=== PATIENT | female | born 1950 | race Caucasian/White ===

== ENCOUNTER 2019-04-24 23:08 | Emergency (ER) | payer OTHER ==
[~2019-04-24] VITALS: Ht 152.4 cm; Wt 72.6 kg
[2019-04-25 00:09] VITALS: BP 110/42
[2019-04-25] MEDS ORDERED: AMIODARONE HCL400 MG PO (20:02)
[2019-04-25] MEDS ORDERED: ELIQUIS2.5 MG PO (20:02)
[2019-04-25] MEDS ORDERED: ALBUTEROL2.5 MG/0.5 INH (20:02)
[2019-04-25] MEDS ORDERED: ASA81BEC PO (20:03)
[2019-04-25] MEDS ORDERED: PLAVIX 75 MG TA75 MG PO (20:03)
[2019-04-25] MEDS ORDERED: LIPITOR 20 MG T20 M1 PO (20:03)
[2019-04-25] MEDS ORDERED: LANTUS SUBQ (20:04)
[2019-04-25] MEDS ORDERED: HUMALOG100 UNIT/1 SUBQ (20:05)
[2019-04-25] MEDS ORDERED: PREVACID30 MG PO (20:05)
[2019-04-25] MEDS ORDERED: TOPROL XL25 MG PO (20:05)
[2019-04-25] MEDS ORDERED: MIDODRINE HCL 55 M1 PO (20:06)
[2019-04-25] MEDS ORDERED: DULERA 100 MCG/13 GM INH (20:07)
[2019-04-25] MEDS ORDERED: RENVELA0.8 GM PO (20:08)
[2019-04-25] MEDS ORDERED: SUPER THERAVIT1 EACH PO (20:08)
[2019-04-25] MEDS ORDERED: ROPINIROLE HCL2 M1 PO (20:08)
[2019-04-25] MEDS ORDERED: SPIRIVA18 MCG INH (20:09)
== END 2019-04-25 00:09 | disposition home or self-care (01) ==
LOC: ER 23:08
DX: L97.811 Non-pressure chronic ulcer of other part of right lower leg limited to breakdown of skin (principal); G62.9 Polyneuropathy, unspecified; I10 Essential (primary) hypertension; I25.10 Atherosclerotic heart disease of native coronary artery without angina pectoris; Z87.891 Personal history of nicotine dependence; Z89.511 Acquired absence of right leg below knee; Z79.4 Long term (current) use of insulin; Z90.49 Acquired absence of other specified parts of digestive tract; Z91.040 Latex allergy status

== ENCOUNTER 2019-04-25 13:57 | Inpatient (IN) | payer OTHER ==
[~2019-04-25] VITALS: Ht 152.4 cm; Wt 66.7 kg
[2019-04-25 14:04] VITALS: BP 147/43
[2019-04-25 14:48] LABS: BE(vivo) 0.5 mmol/L (-2 to +3); HCO3 26.9 mmol/L (22.0-26.0); PCO2 VENOUS 52.6 mmHg (41.0-51.0)
[2019-04-25 14:56] LABS: ABSOLUTE NEUTROPHILS 5.6 thou/uL (1.4-8.2); BASOPHILS 0.6 % (0.0-2.0); EOSINOPHILS 3.8 % (0.0-3.0); HEMATOCRIT 26.9 % (37.0-47.0); HEMOGLOBIN 8.4 gm/dL (12.0-15.0); LYMPHOCYTES 5.4 % (24.0-44.0); MCH 29.6 pg (26.0-34.0); MCHC 31.3 g/dL (28.0-37.0); MCV 94.4 fL (80.0-100.0); PLATELET COUNT 193 thou/uL (150-400); POLYS 82.2 % (36.0-66.0); RBC 2.85 mil/uL (4.20-5.00); RDW 18.8 % (10.5-14.5); WBC 6.8 thou/uL (4.0-11.0)
[2019-04-25 15:05] LABS: CALCIUM 8.5 mg/dL (8.5-10.1); CREATININE 4.1 mg/dL (0.6-1.0); POTASSIUM 4.7 mmol/L (3.5-5.1)
[2019-04-25 15:16] LABS: ALBUMIN 2.8 g/dL (3.4-5.0); TOTAL BILIRUBIN 0.5 mg/dL (<0.1-1.0); TOTAL PROTEIN 5.9 g/dL (6.4-8.2); TROPONIN-I 0.42 ng/mL (<0.06)
[2019-04-25 15:22] LABS: ANISOCYTOSIS 1+
[2019-04-25 19:08] VITALS: BP 101/33
[2019-04-25 19:30] VITALS: BP 121/50
[2019-04-25 20:01] VITALS: BP 123/30
[2019-04-25] MEDS ORDERED: AMIODARONE HCL400 MG PO (20:02)
[2019-04-25] MEDS ORDERED: ALBUTEROL2.5 MG/0.5 INH (20:02)
[2019-04-25] MEDS ORDERED: ELIQUIS2.5 MG PO (20:02)
[2019-04-25] MEDS ORDERED: ASA81BEC PO (20:03)
[2019-04-25] MEDS ORDERED: PLAVIX 75 MG TA75 MG PO (20:03)
[2019-04-25] MEDS ORDERED: LIPITOR 20 MG T20 M1 PO (20:03)
[2019-04-25] MEDS ORDERED: LANTUS SUBQ (20:04)
[2019-04-25] MEDS ORDERED: PREVACID30 MG PO (20:05)
[2019-04-25] MEDS ORDERED: HUMALOG100 UNIT/1 SUBQ (20:05)
[2019-04-25] MEDS ORDERED: TOPROL XL25 MG PO (20:05)
[2019-04-25] MEDS ORDERED: MIDODRINE HCL 55 M1 PO (20:06)
[2019-04-25] MEDS ORDERED: DULERA 100 MCG/13 GM INH (20:07)
[2019-04-25] MEDS ORDERED: ROPINIROLE HCL2 M1 PO (20:08)
[2019-04-25] MEDS ORDERED: SUPER THERAVIT1 EACH PO (20:08)
[2019-04-25] MEDS ORDERED: RENVELA0.8 GM PO (20:08)
[2019-04-25] MEDS ORDERED: SPIRIVA18 MCG INH (20:09)
[2019-04-26 00:09] VITALS: BP 117/81
[2019-04-26 03:23] VITALS: BP 140/30
--- NOTE | 2019-04-26 04:34 | NUR ---
ASSUMED CARE OF PATIENT FROM ER. ADMISSION COMPLETE. PICTURES OF WOUNDS IN CHART, CONSULTS CALLED. VERY ANXIOUS AT TIMES, STATES SHE IS SOA. PLACED ON CONTINUOUS PULSE OX TO MONITOR. REMAINS ABOVE 92% ON 2L. RESTING AT THIS TIME. POC GOALS ESTABLISHED. WILL CONTINUE TO MONITOR.
--- NOTE | 2019-04-26 08:56 | EKG ---
[address] [place] [address] ELECTROCARDIOGRAM REPORT Name: BARRY GRANADOS IDALMIS Room #: 362-P ADM IN M.R.#: [id number] Admission: 04/25/19 Attend Phys: Reggie Mendoza Discharge: Date of : 46 Report #: [id number] THIS REPORT FOR: //name// [facility] ED Test Date: 2019-04-25 Test Time: 14:21:37 Pat Name: BARRY AUGUSTBINH Department: Room: 362 Gender: F Commercial Sales Manager: UNIQUE : 1950 Requested By: Jasper Mcfarlane Order Number: [id number] MD: Arben Velasco Measurements Intervals [place] Rate: 69 P: MS: QRS: 163 QRSD: 132 T: -24 QT: 434 QTc: 465 Interpretive Statements Probable limb lead reversal Sinus rhythm Nonspecific intraventricular conduction delay Poor R wave progression Nonspecific ST and T wave abnormality Compared to ECG 09/15/2008 09:43:38 Intraventricular conduction delay now present nonspecific ST and T wave abnormality is present Electronically Signed On 04-26-2019 8:55:55 ACTING PROFESSOR by Arben Velasco [email or web address] <ELECTRONICALLY SIGNED> By: Arben Velasco MD, [facility] 04/26/19 0855 1421 1421 Arben Velasco MD, [facility] /EPI
[2019-04-26 09:11] VITALS: BP 118/57
--- NOTE | 2019-04-26 09:59 | NUR ---
Nutrition: pt admitted with SOA and seen due to consult stating "diet". Pt with hx of ESRD on hemodialysis x several years per pt. Also noted non pressure related ulcer to RLE at BKA site. Right BKA done 2-3 years ago due to infection. Very good appetite is reported and stable weights around 160#. Noted pt did not eat much breakfast, states she didn't like it. RD obtained food prefs and assisted with meal order today. Did ask for many foods not allowed on renal diet. When explained she states she knows. Offered education & handout for review but pt refused and states she doesn't need that. Understands protein needs/sources for wound healing, adamantly refusing all supplements. States will eat 100% protein foods first on trays. Low risk.
--- NOTE | 2019-04-26 14:02 | NUR ---
DISCHARGE ANTICIPTED FOR TOMORROW. PATIENT CLINICALS FAXED TO [facility]. CALL PLACED TO CLINIC. SPOKE WITH ZACK TO NOTIFY OF CLINCALS FAXED AND ANTICIPATED DISCHARGE FOR TOMORROW.
--- NOTE | 2019-04-26 14:49 | NUR ---
INITIAL ASSESSMENT: Received consult. Pt was admitted from home due to pulmonary edema. Pt with hx of ESRD and goes to outpatient dialysis. Pt with hx of right BKA. Pt currently off the unit having dialysis. SW placed call to pt's dtr, Van and son, Esteban. Messages left for both of them. Per chart, pt lives at home with her dtr. Pt goes to dialysis at [facility]. Possible weekend discharge. inventory control planner faxed clinical info to the [facility] for review and notified of possible weekend discharge. Plan is for pt to discharge home when medically stable. VALERIANO is following to assist as needed with discharge planning.
[2019-04-26 15:01] VITALS: BP 99/36
--- NOTE | 2019-04-26 16:40 | NUR ---
Assumed care approx. 0700 this AM. Pt taken to dialysis approx. 1000 and arrived back to room around 1500. Pt stated she tolerated dialysis well. Pt hypotensive upon arrival back with BP in the 90's/30's. BID metoprolol held as well as amio. All other daily meds administered upon arrival back to unit. Pt assessment completed upon arrival aman (see charted assessment); no changes noted. Pt remains to have a clean mepilex on right stump wound. Stump is elevated on pillow. Pt on 2LNC and tolerating well with O2 sat noted to be 100%. Family at bedside to visit this afternoon. Will continue to monitor. Pt slightly progressing toward plan of care goals.
[2019-04-26 19:45] VITALS: BP 117/54
[2019-04-26 23:54] VITALS: BP 109/46
[2019-04-27 03:14] VITALS: BP 107/48
--- NOTE | 2019-04-27 06:29 | NUR ---
ASSUMED CARE AT 1900. PT SOB AND VERY ANXIOUS OVERNIGHT; SOB WORSE WHEN TRYING TO LAY PT BACK AND REPOSITION. OBTAINED ORDERS FOR RT TREATMENTS, PRN XANAX, AND CXR THIS AM. LUNGS ARE WHEEZY WITH FINE CRACKLES IN THE BASES; SATS ARE UPPER 90'S TO 100% BUT BECOMES TACHYPNIC/ANXIOUS EASILY. PT ASKS FOR SNACKS AND DRINKS FREQUENTLY OVERNIGHT; HS BLOOD SUGAR 218, GAVE 10 UNITS OF LANTUS. PLAN FOR DIALYSIS TODAY. LEFT ARM CONTINUES TO BE VERY WEEPY OVERNIGHT, SEROSANGINOUS DRAINAGE ON CHUX. HAD A MEDIUM SOFT/FORMED, DARK BROWN STOOL. NO OTHER CONCERNS, WILL CONTINUE TO MONITOR.
[2019-04-27 07:31] VITALS: BP 105/49
[2019-04-27 11:32] VITALS: BP 104/49
[2019-04-27 15:13] VITALS: BP 100/53
--- NOTE | 2019-04-27 16:56 | NUR ---
Assumed care approx. 0700 this AM. Pt alert and oriented, very anxious. Pt on 2LNC and tolerating well. Dialysis today- 4 Liters off per information technology analyst report. Pt tolerated well. Right stump dressed with mepilex, kerlix, and a bandage to hold in place by physician this morning. No acute changes this shift. Will continue to monitor. Pt slightly progressing toward plan of care goals.
[2019-04-27 19:55] VITALS: BP 101/53
--- NOTE | 2019-04-28 02:33 | NUR ---
ASSESSMENT: PT REMAIN ALERT AND ORIENT TIMES THREE. PT DID NOT YELL OUT DURING THE NIGHT BUT USED CALL LIGHT INSTEAD TO VOICE HER NEEDS. SLEPT MOST OF THE NIGHT. REPLACED LUIS WRAP AROUND STUMP ON RIGHT AKA. LEFT ARM WEEPY. VSS, AFEBRILE. SR PER MONITOR. SLOW PROGRESS, WILL CONTINUE TO MONITOR.
[2019-04-28 04:30] VITALS: BP 100/56
[2019-04-28 07:32] VITALS: BP 92/47
[2019-04-28] MEDS ORDERED: AUGMENTIN 875-1 EACH PO (09:29)
[2019-04-28 11:24] VITALS: BP 101/41
[2019-04-28 15:27] VITALS: BP 105/54
--- NOTE | 2019-04-28 19:16 | NUR ---
ASSUMED PATIENT CARE AT 0700. A/O X4. ANXIOUS SOME TIMES. SOB WITH EXERTION. ASSISTED TURN. SLOWLY TOWARDS POC GOALS.
[2019-04-28 19:24] VITALS: BP 103/47
--- NOTE | 2019-04-29 02:05 | NUR ---
ASSUMED CARE OF PT AT 1900HRS. PT IS AOX4 WITH SOME CONFUSION AT TIMES. PT LETS NEEDS BE KNOWN. FALL PRECAUTION IN PLACE. PT COMPLAINED OF SOA WITHOUT RELIEF FROM BREATHING TREATMENTS. ANGY MELENDEZ NOTIFIED. ABG WAS ORDERD BUT BLOOD DRAW WAS UNSUCCESSFUL AFTER 4 ATTEMPTS. PT REFUSED FURTHER ATTEMPTS FOR ABG. PT IS PLACED ON BIPAP FOR THE REMAINDER OF THE SHIFT. PT IS TO HAVE DIALYSIS IN THE AM. WILL CONTINUE TO MONITOR.
[2019-04-29 04:00] VITALS: BP 124/53
[2019-04-29 07:20] VITALS: BP 117/42
[2019-04-29 09:02] LABS: ALBUMIN 2.3 g/dL (3.4-5.0); CALCIUM 7.7 mg/dL (8.5-10.1); CREATININE 4.2 mg/dL (0.6-1.0); PHOSPHORUS 4.8 mg/dL (2.5-4.9)
[2019-04-29 13:30] VITALS: BP 97/46
--- NOTE | 2019-04-29 14:40 | NUR ---
0715 pt off the floor for dialysis.
--- NOTE | 2019-04-29 14:41 | NUR ---
1300 pt back from dialysis, assessment and vital signs completed. pt eating lunch and visiting with family. Call light in reach and bed alarm on. denies any needs.
--- NOTE | 2019-04-29 15:25 | NUR ---
SW reviewed chart and spoke with nursing and attending physician. Pt is progressing towards goals for discharge. Recommendation made for post-acute placement. VALERIANO met with pt, dtr and son at bedside. Introduced role of SW. Pt is alert/orientated. Pt lives at home with her family. Pt with hx of right BKA. Pt has w/c, BSC, knee scooter, and walker at home. Pt has prosthesis, but has not been able to use it for ambulation. Pt was recently at [facility] and was discharged home on 04/24. Per pt's family, HH was arranged but had not started when pt was admitted. Pt with ESRD, and is set up with [facility] on T-R-S at 1000. Pt's family provides transportation, but state that they are unable to manage pt's care needs at home any longer. Pt used to go to the [facility] at [place]. Pt's PCP is Dr. Denys Duron. Pt and family are agreeable with post-acute placement. SW provided list of in-network facilities for review. Pt and family request referral to [facility] due to onsite dialysis unit. VALERIANO explained that pt would have to change diaysis groups from [facility] to [facility]. All in agreement with plan. Lengthy discussion with pt's family about possible Medicaid application and pt's current insurance. SW encouraged pt/family to contact insurance to see if they are able to change insurance before the open enrollment period. Pt's family state that they cannot bring pt home and she will need termite helper care placement. VALERIANO contacted [facility] to request them to speak with pt's family. Face sheet faxed to [facility]. party planner to fax referral to [facility]. VALERIANO is following to assist as needed with discharge planning.
--- NOTE | 2019-04-29 15:37 | NUR ---
DISCHARGE PLANNING. ANTICIPATED DISCHARGE TOMORROW. PATIENT REFERR[facility]. CALL PLACED TO TERESA TO NOTIFY. TERESA TO REVIEW AND CONTACT CM. PATIENT WILL NEED DIALYSIS TRANSFERRED TO [facility] UPON ACCEPTANCE TO [facility]. TER[facility] AWARE. AWAITING RESPONSE.
[2019-04-29 16:25] VITALS: BP 97/46
[2019-04-29 16:28] VITALS: BP 97/39
--- NOTE | 2019-04-29 18:35 | NUR ---
PT PULLED OUT IV, SITE BLEEDING, PRESSURE APPLIED. SITE NO LONGER BLEEDING DRESSING APPLIED. IV TEAM PAGED FOR A NEW IV. wILL CPONTINUE TO MONITOR.
[2019-04-29 19:45] VITALS: BP 103/51
--- NOTE | 2019-04-30 05:22 | NUR ---
Pt. very anxious and hollers when awake. Disoriented at times and forgetful. Pt. given a lot of reassurances and reorientation. She frequently ask for snacks. Repositioned prn for comfort. O2 at 2L/NC and she goes get short of breath with exertion and gets tachypneic when anxious. Anxiety med given with good relief. She slept fair after 0100. Oliguric , used bedpan to have a bm. Bed alarm on for safety. Will continue to monitor.
[2019-04-30 06:00] VITALS: BP 99/52
[2019-04-30 08:11] VITALS: BP 120/55
--- NOTE | 2019-04-30 08:19 | HC ---
[facility] [place] [address] CONSULTATION Name: Room #: 362-P ADM IN M.R.#: [id number] Admission: 04/25/19 Attend Phys: Reggie Mendoza Discharge: Date of : 46 Report #: [id number] THIS REPORT FOR: //name// CC: Denys Mendoza DATE OF SERVICE: 04/26/2019 REASON FOR THE CONSULTATION: End-stage renal disease. REASON FOR THE PRESENTATION: Weakness and shortness of breath. HISTORY OF PRESENT ILLNESS: This is a 68-year-old who has been maintained on hemodialysis for some years. This had started in [place]. She dialyzes every Monday, Monday and Monday. She has a longstanding history of diabetes mellitus and hypertension. She is status post right AKA. She dialyzes with [facility]. The patient was recently admitted to [facility]. She was at that facility recently for what seems to be pressure ulcers. She was discharged from [facility] to her home. It looks like that she had major issues with her fluid while at [facility] and was dialyzed every Monday, and Monday. The daughter was concerned about an ulcer that started to appear in the last 36 hours as per the medical records. Because of this ulcer, the patient's daughter brought the patient to the hospital for further evaluation. There seems to be social issues with the patient's care. The patient is supposed to be dialyzing today. From the renal perspective, she was started on hemodialysis in [place]. She recently moved to [place] to live with her daughter. Her end-stage renal disease was attributed to diabetes mellitus. PAST MEDICAL HISTORY: 1. End-stage renal disease, maintained on hemodialysis. 2. Hypertension. 3. Post right AKA. 4. Diabetes mellitus with all of its complications. 5. Egan's esophagus. 6. Tonsillectomy. 7. Coronary artery disease, post CABG ALLERGIES: LATEX. SOCIAL HISTORY: She lives with her daughter. Denies drug or alcohol abuse. FAMILY HISTORY: Significant for diabetes mellitus. REVIEW OF SYSTEMS: GENERAL: Significant for weakness and limited mobility. [facility] [address] [place] [address] CONSULTATION Name: AUGUSTBINHSeptember Room #: 362-P [facility] IN M.R.#: [id number] Admission: 04/25/19 Attend Phys: Reggie Mendoza Discharge: Date of : 46 Report #: [id number] CARDIOVASCULAR: Significant for shortness of breath. PULMONARY: Significant for shortness of breath, but no cough or hemoptysis. GASTROINTESTINAL: No nausea or vomiting. GENITOURINARY: Minimal urine output. No frequency, no urgency. MUSCULOSKELETAL: As per the history of present illness. SKIN: As per the history of present illness. MEDICATIONS: 1. Midodrine. 2. Eliquis. 3. Plavix. 4. Metoprolol. 5. Insulin. PHYSICAL EXAMINATION: GENERAL: She is alert, oriented. VITAL SIGNS: Blood pressure is 118/57. She is maintained on by nasal cannula oxygen. Temperature is 36.8, pulse rate is 69. HEAD AND NECK: Left IJ tunneled catheter. CHEST: Bilateral crackles. CARDIOVASCULAR: Systolic murmur present. ABDOMEN: Soft with abdominal wall edema. LOWER EXTREMITIES: Right AKA with extensive left lower extremity edema and venous stasis changes. UPPER EXTREMITIES: Clotted right-sided AV graft. LABORATORY DATA: White blood cell count 6.8, hemoglobin 8.4, platelet 193. Sodium 133, BUN is 44, creatinine is 4.1. Chest x-ray is consistent with pulmonary edema. IMPRESSION AND PLAN: 1. End-stage renal disease. 2. Acute pulmonary edema. 3. Diabetes mellitus with all of its complications. 4. Anemia. 5. The patient is definitely under dialyzed and will need aggressive dialysis regimen to better control her volume given her pulmonary edema and significant peripheral edema. Dialysis will be arranged for the patient today. 6. Extra ultrafiltration tomorrow. 7. Wound care. 8. Resume her outpatient home medications. <ELECTRONICALLY SIGNED> By: Sophia Rock MD 04/30/19 0819 0918 1202 Sophia Rock MD /nt
--- NOTE | 2019-04-30 08:34 | HC ---
[facility] [place] [address] CONSULTATION Name: AUGUSTBINHBARRY IDALMIS Room #: 362-P ADM IN M.R.#: [id number] Admission: 04/25/19 Attend Phys: Reggie Mendoza Discharge: Date of : 46 Report #: [id number] THIS REPORT FOR: //name// CC: Denys Mendoza DATE OF SERVICE: 04/27/2019 WOUND CARE CONSULTATION NOTE REASON FOR CONSULTATION: Abrasion and pressure ulcer of right leg, below-knee amputation stump in the setting of recent myocardial infarction, renal failure with dialysis and respiratory insufficiency with hospital-acquired pneumonia. HISTORY OF PRESENT ILLNESS: The patient is a 68-year-old woman who is status post right below-knee amputation 2-3 years ago for diabetic complications of diabetes mellitus type 2 and diabetic neuropathy. The patient had been discharged from [facility] after a 4-day admission for myocardial infarction. The patient developed respiratory insufficiency and is admitted for possible hospital-acquired pneumonia with diffuse lower lobe predominant interstitial opacities, rule out pneumonia. Wound care was asked to see her since it was noted that she has a wound of her right amputation stump. PAST MEDICAL HISTORY: 1. Status post recent myocardial infarction. 2. Currently being treated for possible hospital-acquired pneumonia. 3. End-stage renal disease with hemodialysis. 4. Diabetes mellitus type 2. 5. Diabetic peripheral neuropathy. 6. Asthma. 7. Hypertension. 8. Coronary artery disease. PAST SURGICAL HISTORY: Tubal ligation, coronary artery bypass grafting and stenting, tonsillectomy, exploratory laparotomy, cataract surgery, cholecystectomy, right below-knee amputation 3 years ago. SOCIAL HISTORY: Former smoker. ALLERGIES: LATEX, IVP DYE. PHYSICAL EXAMINATION: GENERAL: Shows a chronically ill-appearing elderly woman who is responsive. She has some coarse breath sounds and cough. HEENT: Mucous membranes are moist. NECK: Supple. [facility] [address] [place] [address] CONSULTATION Name: AUGUSTBINHBARRY IDALMIS Room #: 362-P ADM IN M.R.#: [id number] Admission: 04/25/19 Attend Phys: Reggie Mendoza Discharge: Date of : 46 Report #: [id number] ABDOMEN: Soft. EXTREMITIES: Focused extremity exam shows right below-knee amputation. On the distal dorsal aspect of the right knee amputation stump, there is present an oval 2.5 x 2 cm wound, which appears to be either an abrasion with a skin tear or stage 2 pressure ulcer. This appears superficial. There is a thin layer of epithelium, which was disrupted with underlying slight discoloration. We will dress this wound with a Mepilex foam border, Kerlix and an Sean for protection, this appears noninfected. IMPRESSION: Abrasion or skin tear versus pressure ulcer of right below-knee amputation stump. This appears limited to the superficial skin layer. PLAN: We advised Mepilex foam border protection to be changed daily, covered with a Kerlix, Sean wrap. Wound care team will follow. <ELECTRONICALLY SIGNED> By: Alexey Edwards MD 04/30/19 0834 [id number] 0836 Alexey Edwards MD /nt
--- NOTE | 2019-04-30 08:48 | NUR ---
pt awake, alert and oriented X3. PT SATING GOOD ON 2L OF OXYGEN. ATE MOST OF HER BREAKFAST. AM MEDS ADMINSTERED. Call LIGHT AND TABLE WITH REACH IN REACH. BED ALARM ON. DENIES ANY OTHER NEEDS. wILL CONTINUE TO MONITOR
--- NOTE | 2019-04-30 12:00 | NUR ---
VALERIANO reviewed chart and spoke with nursing and attending physician. Pt is progressing towards goals for discharge. VALERIANO notified that [facility] is able to accept pt from a clinical standpoint. [facility] to submit for insurance authorization for skilled placement. VALERIANO spoke with [email or web address] about meeting with pt/family for possible Medicaid jesus as secondary insurance. planner internship faxed updates to [facility] and also faxed info to [facility] intake for review. Pt and family are in agreement with plan for pt change to [facility] clinic while at [facility]. [id number] form completed and faxed to [facility]. Placed on pt's chart. VALERIANO left voice message for pt's dtr, Van, to provide update. Awaiting input from [facility] intake at this time. VAELRIANO is following to assist as needed with discharge planning.
[2019-04-30 12:14] VITALS: BP 109/45
--- NOTE | 2019-04-30 15:20 | NUR ---
WOUND CONSULT; ROUNDING WITH [employer]. THE RIGHT BKA AREA HAS AN OLD HEMATOMA THAT IS RESOLVED. NO DRAINAGE OR ODOR. RECOMMENDATIONS; SKIN PREP, COVER WITH BORDER FOAM, CHANGE M/W/F PRN DISCUSSED WITH STAFF
[2019-04-30 15:54] VITALS: BP 119/49
[2019-04-30 20:20] VITALS: BP 105/39
--- NOTE | 2019-05-01 02:30 | NUR ---
ASSUMED CARE FROM DAY SHIFT PT C/O BACK PAIN TYLENOL PO GIVEN AND PT REPOSITION FOR COMFORT, PT AWAKE YELLING OUT , XANAX GIVEN WITH BOX LUNCH.PT REFUSE TO USE CALL LIGHT WHEN NEEDING HELP. GAS LEAK INSPECTOR HELPER SHOWS NSR.BED ALRM ON FOR SAFETY, WILL CONITIUE WOITH CURRENT PLAN OF CARE.
[2019-05-01 03:56] VITALS: BP 121/54
[2019-05-01 08:01] VITALS: BP 94/44
[2019-05-01 11:26] VITALS: BP 109/44
--- NOTE | 2019-05-01 12:07 | NUR ---
WOUND CONSULT; ROUNDING WITH DR WASSERMAN. THE BKA AREA IS AN OLD HEMATOMA AND IT IS NOT OPEN. NO CHANGES SINCE YESTERDAY. CONTINUE CURRENT TREATMENT
--- NOTE | 2019-05-01 16:44 | NUR ---
VALERIANO reviewed chart and spoke with nursing and attending physician. VALERIANO received call from Dusty Feliciano at [facility], who states that the physician has declined acceptance to the [facility], as pt is already established with [facility]. VALERIANO spoke with spiral winding machine helper. SW spoke with pt's dtr, via phone to update. Pt's dtr states that she is wanting to transfer pt's care to [facility] clinic. Pt's dtr states that she will work on getting in touch with pt's [facility] clinic. Pt's family would like to move to . [facility] for SNF/LTC. SW is following to assist as needed with discharge planning.
--- NOTE | 2019-05-01 18:28 | NUR ---
PATIENT IS IN DIALYSIS AT THIS TIME. SHE WAS NOTED TO BE ANXIOUS AND PRN XANAX ADMINISTERED. IT WAS EFFECTIVE. SHE WAS NOTED TO HAVE LOW BP IN DIALYSIS AND ALBUMIN WAS INFUSED. WILL CONT TO MONITOR AND ASSIST NEEDED.
[2019-05-01 19:37] VITALS: BP 112/48
--- NOTE | 2019-05-01 23:07 | NUR ---
PT VERY AGITATED YELLING AND SCREAMING CONFUSED TO SURROUNDING, ATTEMPTED TO GIVEN HALDOL IV. IV SITE CLOTTED AND NOT ABLE TO GIVEN. ATTEMPTED TO REPLACE IV BUT WAS UNSUCESSFUL. CALLED AND GOT ORDER FOR IM HALDOL.XANAX GIVEN PT THREW PILL ACROSS THE ROOM. AFTER 30 MINS PT CALM AND COOPERATIVE , PT THEN TOOK XANAX AND ASK FOR BOX LUNCH.
--- NOTE | 2019-05-02 03:42 | NUR ---
PT AGREED TO HAVE RESP THERAPY PLACE BIPAP ON, PT CONINTUE TO WANT OT TAKE OF MASK BUT IS TOLD TO KEEP ON SAT 98 % NAD LUNG SOUNDS IMPROVING AT THIS TIME.
[2019-05-02 03:57] VITALS: BP 116/45
[2019-05-02 07:47] VITALS: BP 118/57
[2019-05-02 09:12] LABS: HEP B SURFACE Ab(ANTI-HBS Non Reactive (()); HEPATITIS B SURFACE AG Negative (Negative)
[2019-05-02 10:53] LABS: HEMATOCRIT 26.1 % (37.0-47.0)
[2019-05-02 11:12] VITALS: BP 155/89
[2019-05-02 11:23] VITALS: BP 109/42
--- NOTE | 2019-05-02 15:34 | NUR ---
VALERIANO reviewed chart and spoke with nursing and attending physician. Pt not stable for discharge today, as pt has GI bleed. GI consulted. VALERIANO spoke with Denia in admissions at [facility] to provide update. Denia to speak with Hospital Security Officer to determine if they can accept pt, and then pt can continue to use her [facility] clinic. Sue met with pt and completed a Medicaid application. VALERIANO updated Denia at [facility] regarding Medicaid application. Sue to send VALERIANO MEdicaid application when processed. VALERIANO is following to assist as needed with discharge planning.
--- NOTE | 2019-05-02 15:47 | NUR ---
ASSUMED CARE AT SHIFT CHANGE, ASSESSMENT DOCUMENTED AND VSS. PATIENT HAD BLOODY BM, AND DR PASCUAL NOTIFIED. S/B GI AND ORDERED TO KEEP PATIENT NPO. AND WILL CONTINUE WITH POC.
[2019-05-02 15:48] VITALS: BP 109/37
[2019-05-02 19:15] VITALS: BP 129/57
[2019-05-03 04:20] VITALS: BP 118/38
--- NOTE | 2019-05-03 04:41 | NUR ---
ASSUMED CARE AT 1900. PT FREQ ANXIOUS AND REQUIRES REDIRECTION; SOB INCREASES WITH HER ANXIETY, GAVE XANAX AT HS. WORE BIPAP FOR LESS THAN AN HOUR, DIDN'T TOLERATE MASK, AND PT WAS DESATTING WITH MASK ON IT SEEMED TO BE PULLING HER FACE FORWARD AND REDUCING O2 FLOW. SATS IMPROVED WITH JUST THE NC. HAS A LOOSE, WEAK COUGH. NO BLOODY STOOLS OVERNIGHT. PLAN FOR DIALYSIS TODAY. NO OTHER CONCERNS, WILL CONTINUE TO MONITOR.
--- NOTE | 2019-05-03 10:18 | NUR ---
SW reviewed chart and spoke with nursing and attending physician. Pt with new GI bleed. VALERIANO received pt's Medicaid jesus from [employer]. Form printed and faxed to [facility] for review. VALERIANO is follow to assist as needed with discharge planning.
[2019-05-03 11:43] LABS: HEMATOCRIT 25.5 % (37.0-47.0)
[2019-05-03 13:45] VITALS: BP 104/36
--- NOTE | 2019-05-03 14:04 | NUR ---
Nutrition: Pt seen per follow up. Ordered for dialysis today. No recent K+ or Phos labs to review. Continues on a renal diet and eating extremely well. Is averaging 86% of meals per the last 10 recorded meals, often eating 80-100% of recent meals. Woke pt from afternoon nap. She voices no new nutrition concerns or appetite issues. Denies any further nutrition needs. Fell back asleep mid-conversation. EMR notes GI bleed yesterday, with bloody stool. Weights very stable, within 1# this week (162.5# on 04/28, 163.4# on 05/02). Keep as low nutrition risk given consistently strong po intake levels.
[2019-05-03 14:10] VITALS: BP 121/43
[2019-05-03 15:29] VITALS: BP 111/34
--- NOTE | 2019-05-03 19:30 | NUR ---
HAD DIALYSIS TODAY AND 3.1L WAS OBTAIN. SHE APPEARS TIRED AND HAS SLEPT MOST OF THE EVENING. WILL CONT WITH PLAN OF CARE.
[2019-05-03 19:55] VITALS: BP 106/46
[2019-05-04 05:00] VITALS: BP 97/49
[2019-05-04 05:34] LABS: HEMATOCRIT 24.5 % (37.0-47.0); HEMOGLOBIN 7.6 gm/dL (12.0-15.0); MCH 30.2 pg (26.0-34.0); MCHC 30.9 g/dL (28.0-37.0); MCV 97.7 fL (80.0-100.0); RBC 2.51 mil/uL (4.20-5.00); RDW 18.7 % (10.5-14.5); WBC 4.6 thou/uL (4.0-11.0)
[2019-05-04 07:47] VITALS: BP 134/56
--- NOTE | 2019-05-04 08:12 | NUR ---
ASSUMED CARE AT 1900. PT CALLS OUT FREQ RATHER THAN USING HER CALL LIGHT. ASKS FOR MULTIPLE SNACKS ALL NIGHT. HS BLOOD SUGAR 212, GAVE THE ORDERED 10 UNITS OF LANTUS. PT ASKED TO BE TURNED SEVERAL TIMES THROUGHOUT THE NIGHT. GAVE TYLENOL ONCE FOR BUTTOCK PAIN, WITH GOOD RELIEF. GAVE XANAX ONCE FOR ANXIETY. 2L NC, EDUCATED TO DEEP BREATH AND GIVE A STRONG COUGH TO CLEAR SECRETIONS. NO OTHER CONCERNS, SHIFT REPORT GIVEN AT 0700.
[2019-05-04 11:27] VITALS: BP 116/51
[2019-05-04 15:39] VITALS: BP 92/34
--- NOTE | 2019-05-04 19:49 | NUR ---
Assumed pt care this am, pt would have moments when she would cry and state she wants to go home. Pt is easily redirected, and slept in the afternoom. No signs of bleeding hav been noted, diet is well tolerated. No signs or verbalizations of distress for this shift. Q2 turns done, bed bath done and whole body moisturized and this relieved the itching. POC followed, endorded to the night nurse.
[2019-05-04 20:03] VITALS: BP 112/44
[2019-05-05 03:03] VITALS: BP 101/41
--- NOTE | 2019-05-05 05:24 | NUR ---
ASSUMED CARE AT 1900. PT CONTINUES TO ASK FOR FREQ SNACKS. DENIES NAUSEA. REPORTS INTERMITTENT GENERALIZED AND BUTTOCK PAIN. GAVE TYLENOL ONCE, REPOSITIONING SIDE TO SIDE OVERNIGHT. RT HAS TITRATED PT'S O2 DOWN, THIS AM SHE IS ON 1L WITH SATS AROUND 92%. NO OTHER CONCERNS, WILL CONTINUE TO MONITOR.
[2019-05-05 05:33] LABS: HEMATOCRIT 26.2 % (37.0-47.0); HEMOGLOBIN 7.9 gm/dL (12.0-15.0); MCH 29.5 pg (26.0-34.0); MCHC 30.2 g/dL (28.0-37.0); MCV 97.5 fL (80.0-100.0); RBC 2.68 mil/uL (4.20-5.00); RDW 18.8 % (10.5-14.5); WBC 5.1 thou/uL (4.0-11.0)
[2019-05-05 06:00] LABS: % SATURATION 22 % (20-39); IRON 42 ug/dL (50-170); TIBC 192 ug/dL (250-450)
[2019-05-05 07:07] VITALS: BP 113/52
[2019-05-05 11:20] VITALS: BP 122/52
[2019-05-05 15:43] VITALS: BP 115/35
--- NOTE | 2019-05-05 18:21 | NUR ---
Assumed pt care this am, VS stable no nausea or vomiting has been noted. Q2 turns done through out the shift. No verbalizations of pain. Stayed om her recliner for the afternoon. POC followed, no signs or vrbalizations of distress have been noted.
[2019-05-05 18:59] VITALS: BP 138/50
--- NOTE | 2019-05-06 02:03 | NUR ---
ASSUMED CARE OF PT AT 1900HRS. PT IS AOX3-4 WITH SOME CONFUSION AND FORGETFULNESS. FALL PRECAUTION IN PLACE. BT CONTINUED. O2 VIA NC AT 1L CONTINUED. PT COMPLAINED OF PAIN AND SOA. PT FELT MORE COMFORTABLE AFTER REPOSITIONING AND BREATHING TREATMENT. PT WAS ABLE TO GET COMFORTABLE AND SLEEP PART OF THE SHIFT. DIALYSIS TO BE DONE IN THE AM. VSS AMD NO S/S/ OF ACUTE DISTRESS. WILL CONTINUE TO MONITOR.
[2019-05-06 04:13] VITALS: BP 105/37
[2019-05-06 05:30] LABS: HEMATOCRIT 25.6 % (37.0-47.0); MCH 30.3 pg (26.0-34.0); MCHC 31.2 g/dL (28.0-37.0); MCV 97.1 fL (80.0-100.0); RBC 2.63 mil/uL (4.20-5.00); RDW 18.4 % (10.5-14.5); WBC 5.3 thou/uL (4.0-11.0)
[2019-05-06 07:19] VITALS: BP 128/51
[2019-05-06 11:09] VITALS: BP 126/52
--- NOTE | 2019-05-06 15:29 | NUR ---
SW reviewed chart and spoke with nursing and attending physician. Pt is currently off the unit having dialysis. Pt's hemoglobin dropped. Awaiting input from GI regarding possible procedures. production planner updated admissions at [facility]. SW is following to assist as needed with discharge planning.
[2019-05-06 16:05] VITALS: BP 107/40
--- NOTE | 2019-05-06 17:47 | NUR ---
PATIENT HAD DIALYSIS TODAY. BACK IN ROOM AND SLEEPING AT THIS TIME. SHE HAD A BM THIS PM. RESPIRATIONS ARE NON LABORED ON ROOM AND SATS GREATER THAN 90%. WILL CONT WITH PLAN OF CARE/.
[2019-05-06 19:30] VITALS: BP 122/41
--- NOTE | 2019-05-07 03:55 | NUR ---
Pt. very anxious at beginning of shift despite anxiety med. Tylenol also given for generalized pain with good relief. She requested for sleep med. Melatonin given x1 and she slept some. Repositioned prn for comfort. Tolerating room air well with O2 sat greater than 90%. Shortness of breath when she's anxious.Bed alarm on for safety. Making some progress towards care plan goals.
[2019-05-07 04:30] VITALS: BP 105/43
[2019-05-07 05:53] LABS: HEMATOCRIT 25.1 % (37.0-47.0); HEMOGLOBIN 7.9 gm/dL (12.0-15.0); MCH 30.1 pg (26.0-34.0); MCHC 31.4 g/dL (28.0-37.0); MCV 95.8 fL (80.0-100.0); RBC 2.62 mil/uL (4.20-5.00); RDW 18.3 % (10.5-14.5); WBC 4.2 thou/uL (4.0-11.0)
[2019-05-07 06:13] LABS: ALBUMIN 2.8 g/dL (3.4-5.0); CALCIUM 8.4 mg/dL (8.5-10.1); CREATININE 2.5 mg/dL (0.6-1.0); TOTAL BILIRUBIN 0.4 mg/dL (<0.1-1.0); TOTAL PROTEIN 5.8 g/dL (6.4-8.2)
[2019-05-07 07:27] VITALS: BP 109/52
[2019-05-07 11:15] VITALS: BP 129/57
[2019-05-07 16:05] VITALS: BP 119/42
--- NOTE | 2019-05-07 16:17 | NUR ---
VALERIANO reviewed chart and spoke with nursing and attending physician. Pt is progressing towards goals for discharge. Therapy was unable to work with pt today. Awaiting therapy notes to send to [facility] to submit for insurance authorization. [facility] is able to accept pt and able to provide transportation to and from [facility]. VALERIANO left voice message for pt's dtr, Van. VALERIANO spoke with pt's son, Esteban, via phone to provide update. Pt's son states that they do not want pt to use [facility] for dialysis. They would like to establish care with [facility] with the goal of using the onsite [facility] clinic at [facility]. VALERIANO explained that [facility] physician declined pt for admission. Pt's son states they would like to use a different dialysis company if possible. VALERIANO updated admissions at [facility]. VALERIANO is following to assist as needed with discharge planning.
--- NOTE | 2019-05-07 17:31 | NUR ---
ASSUMED CARE OF PT AT 0700. PT AOX2 IN NO ACUTE DISTRESS. SOMEWHAT LETHARGIC FOR PART OF DAY, PATIENT SAYS SHE 'JUST SLEEPY'. VITALS STABLE. PHYSICIAN NOTIFIED THAT PATIENT MORE LETHARGIC TODAY, DESPITE RECEIVING NO XANAX. LARGE BOWEL MOVEMENT. CURRENTLY SOCIALIZING WITH FAMILY AT BEDSIDE. UNHAPPY WITH MEAL TRAYS... WILL CONT TO MONITOR.
[2019-05-07 19:08] VITALS: BP 116/44
[2019-05-08 03:59] VITALS: BP 105/42
--- NOTE | 2019-05-08 04:19 | NUR ---
Pt. very anxious at beginning of shift and intermittently during the night when awake. She hollers for help ,cries stating she wants to go home , she wants her family and she wants her life back. Spent some time with pt. , reoriented her and redirected. Xanax given at HS and tylenol also given for generalized pain. Assisted to reposition and made her comfortable on bed. She slept some but when awake she gets anxious and needs a lot of reassurance. O2 at 1L/NC with O2 sat in the low to mid 90's. Bed alarm on for safety. Making some progress towards care plan goals.
[2019-05-08 07:01] VITALS: BP 115/52
[2019-05-08 11:15] VITALS: BP 104/45
[2019-05-08 15:44] VITALS: BP 125/57
--- NOTE | 2019-05-08 17:28 | NUR ---
VALERIANO reviewed chart and spoke with nursing and attending physician. SW notified that insurance has authorized pt to go to [facility]. Auth is valid until 05/14. SW updated attending physician. SW working on pt's dialysis. VALERIANO left voice message for [place] [facility] to see if [facility] will reconsider pt. VALERIANO spoke with Claudia at [facility] as well. SW to follow up with nephologist tomorrow regarding acceptance to [facility]'s service and recommendation for outpatient schedule at time of discharge. Pt's normal outpatient dialysis is T-R-S. Pt has been having dialysis M-W-. SW is following to assist as needed with discharge planning.
--- NOTE | 2019-05-08 18:42 | NUR ---
PATIENT AGITATED WHEN WAS ON DAILYSIS. A/O X2. BP LOW ON DAILYSIS. SLOWLY TOWAARDS POC GOALS.
[2019-05-08 19:19] VITALS: BP 116/55
[2019-05-09 03:06] VITALS: BP 114/48
--- NOTE | 2019-05-09 07:06 | NUR ---
PT MAKING SLOW PROGRESS TOWARDS GOALS. OCCASIONAL, MINIMALLY PRODUCTIVE COUGH AT TIMES. DENIES ANY PAIN. NOTED WHEEZING IN RIGHT UPPER LOBE, DIMINISHED THROUGHOUT WITH SOME FAINT CRACKLES LLL. HAS DENIED ANY SOA WHILE AT REST. DID REMAIN IN BED THROUGHOUT THE NIGHT.
[2019-05-09 07:26] VITALS: BP 108/57
--- NOTE | 2019-05-09 13:30 | NUR ---
Nutrition: Seen early for RD follow up. Continues on a renal diet with last dialysis session yesterday, 05/08. Weight is down slightly this past week from 154# per 05/04 to 150.4# per 05/09. Could be due to fluid shifts/dialysis goals. Appears po intake dropped slightly over the weekend, but has since resumed strong meal intake the last 2 consecutive days at 50-100% with 2-day meal average = 78%. Pt was so sleepy/fatigued during visit. Able to answer a few questions before nodding off. Agrees eating well again. Helped modify upcoming dinner to more desired entree/protein option of tuna salad sandwich. Protein encouraged. On insulin for BGs; morning fasting elevated at 183 mg/dl. Recent K+ WNL per 05/07, but no phos check since 04/29. Keep as low nutrition risk given sufficient meal intakes, regular protein consumption.
[2019-05-09 15:26] VITALS: BP 129/50
--- NOTE | 2019-05-09 15:39 | NUR ---
VALERIANO reviewed chart and spoke with nursing and attending physician. Pt is medically stable for discharge to post-acute. [facility] is able to accept pt pending dialysis confirmation. VALERIANO spoke with Dr. Rock via phone. [facility] clinics will not accept pt to their clinics. VALERIANO spoke with pt's dtr, Van, via phone to provide update and discuss [facility] clinics declining pt. Lengthy discussion with pt's dtr regarding that [facility] has the right to refuse pt and that other [facility] clinics can be contacted or another dialysis group can be contacted. Pt's dtr states that she would be agreeable with transferring pt to another [facility] clinic. The [facility] and [place] locations are the closest. Pt has been to the [place] clinic in the past. Pt would not like to return to there. [facility] location preferred. [facility] is able to provide transportation to and from dialysis. VALERIANO placed call to [facility] and spoke with Claudia. Claudia faxed checklist for requested medical records. VALERIANO faxed requested information. VALERIANO placed call to intake and spoke with Anushka. Info received and in process. VALERIANO updated nurse, attending physician, and machine clothing worker. Pt to have dialysis today. Awaiting confirmation of chair time. VALERIANO updated pt's dtr, Van, via phone. VALERIANO is following to assist as needed with discharge planning.
--- NOTE | 2019-05-09 16:18 | NUR ---
ASSUMED PATIENT CARE AT 0700. A/0 2. AGITATED SOME TIMES. WILL HAVE HD SONN TODAY. SLOWLY TOWARDS POC GOALS.
[2019-05-09 22:02] VITALS: BP 106/58
[2019-05-10 03:55] VITALS: BP 115/64
[2019-05-10 07:49] VITALS: BP 122/57
--- NOTE | 2019-05-10 10:35 | NUR ---
VALERIANO reviewed chart. Pt had dialysis yesterday. SW placed call to [facility] intake to confirm info was received and to request chair time today, as pt is medically stable for discharge and insurance has authorized pt to go to a SNF. Spoke with intake at length regarding case. Request for transfer from [facility] to the [facility] due to location to [facility]. Requested T-R-S schedule. Reference # [id number] provided. Coordinator is [phone] x [phone]. Awaiting confirmed chair time at this time. VALERIANO is following to assist as needed with discharge planning.
[2019-05-10 15:08] VITALS: BP 111/43
--- NOTE | 2019-05-10 19:27 | NUR ---
HAD DIALYSIS TODAY. HAS SLEPT THROUGH THE DAY. NO COMPLAIN OF PAIN. DOES NOT SEEM TO BE IN PAIN TO BE IN PAIN. WILL CONT WITH PLAN OF CARE.
[2019-05-10 19:45] VITALS: BP 115/41
[2019-05-11 03:44] VITALS: BP 104/42
--- NOTE | 2019-05-11 04:45 | NUR ---
PATIENT IS PROGRESSING SLOWLY IN HER CARE PLAN. VITAL SIGNS STABLE WITH PATIENT HAVING NO COMPLAINTS OF PAIN OR NAUSEA. MOSTLY ORIENTED, PATIENT IS ABLE TO CALL APPROPRIATELY FOR NEEDS. PATIENT HAD TO BE PUT BACK ON SUPPLEMENTAL OXYGEN EARLY IN SHIFT DUE TO LOW OXYGEN SATURATION AND ANXIETY. CRITICALLY LOW BLOOD SUGAR ASSESSED EARLIER IN SHIFT WITH HYPOGLYCEMIA PROTOCOL INITIATED. NURSE TO ASSESS BLOOD SUGAR EARLY THIS MORNING. POSSIBLE DISCHARGE TODAY. CONTINUE PLAN OF CARE.
[2019-05-11 07:43] VITALS: BP 123/43
--- NOTE | 2019-05-11 11:14 | NUR ---
ASSUMED CARE OF PT AT 0700. PT AOX2 IN NO ACUTE DISTRESS, BEING DIALYZED AT BEDSIDE. TRANSPORTED BY STRETCHER AT 1100. DIALYZED FOR 1.5L. REPORT CALLED TO Kate FORD.
== END 2019-05-11 11:39 | DRG 291 ==
LOC: ER 13:57 → EROBS 17:18 → 3W 17:18
PROVIDERS: Emergency Medicine; Hospitalist; Internal Medicine Nephrology; Nurse Practitioner; ADMIT Hospitalist
PROC: 5A1D70Z Performance of Urinary Filtration, Intermittent, Less than 6 Hours Per Day (ICD-10-PCS; principal; 2019-04-26)
PROC: 5A1D70Z Performance of Urinary Filtration, Intermittent, Less than 6 Hours Per Day (ICD-10-PCS; 2019-04-27)
PROC: 5A09357 Assistance with Respiratory Ventilation, Less than 24 Consecutive Hours, Continuous Positive Airway Pressure (ICD-10-PCS; 2019-04-30)
PROC: 5A09357 Assistance with Respiratory Ventilation, Less than 24 Consecutive Hours, Continuous Positive Airway Pressure (ICD-10-PCS; 2019-05-02)
PROC: 5A1D70Z Performance of Urinary Filtration, Intermittent, Less than 6 Hours Per Day (ICD-10-PCS; 2019-05-09)
PROC: 5A1D70Z Performance of Urinary Filtration, Intermittent, Less than 6 Hours Per Day (ICD-10-PCS; 2019-05-11)
DX: I13.2 Hypertensive heart and chronic kidney disease with heart failure and with stage 5 chronic kidney disease, or end stage renal disease (principal); J18.9 Pneumonia, unspecified organism; I50.21 Acute systolic (congestive) heart failure; N18.6 End stage renal disease; J96.90 Respiratory failure, unspecified, unspecified whether with hypoxia or hypercapnia; E43 Unspecified severe protein-calorie malnutrition; J81.1 Chronic pulmonary edema; D62 Acute posthemorrhagic anemia; K64.9 Unspecified hemorrhoids; T87.89 Other complications of amputation stump; E11.22 Type 2 diabetes mellitus with diabetic chronic kidney disease; I25.10 Atherosclerotic heart disease of native coronary artery without angina pectoris; J45.909 Unspecified asthma, uncomplicated; G25.81 Restless legs syndrome; K21.0 Gastro-esophageal reflux disease with esophagitis; K22.70 Barrett's esophagus without dysplasia; E11.42 Type 2 diabetes mellitus with diabetic polyneuropathy; Y84.8 Other medical procedures as the cause of abnormal reaction of the patient, or of later complication, without mention of misadventure at the time of the procedure; I95.9 Hypotension, unspecified; E78.5 Hyperlipidemia, unspecified; D63.8 Anemia in other chronic diseases classified elsewhere; E66.01 Morbid (severe) obesity due to excess calories; I25.5 Ischemic cardiomyopathy; Z89.441 Acquired absence of right ankle; Z91.048 Other nonmedicinal substance allergy status; Z99.2 Dependence on renal dialysis; Z95.1 Presence of aortocoronary bypass graft; Z95.5 Presence of coronary angioplasty implant and graft; Z90.89 Acquired absence of other organs; Z98.41 Cataract extraction status, right eye; Z90.49 Acquired absence of other specified parts of digestive tract; I25.2 Old myocardial infarction; Z98.49 Cataract extraction status, unspecified eye; Z68.28 Body mass index [BMI] 28.0-28.9, adult; Z89.511 Acquired absence of right leg below knee; Z91.041 Radiographic dye allergy status; Z87.891 Personal history of nicotine dependence; Y83.5 Amputation of limb(s) as the cause of abnormal reaction of the patient, or of later complication, without mention of misadventure at the time of the procedure
CPT/HCPCS: 10779; 10879; 32100

== ENCOUNTER 2019-06-06 08:13 | Inpatient (IN) | payer OTHER ==
[~2019-06-06] VITALS: Ht 152.4 cm; Wt 66.8 kg
--- NOTE | ~2019-06-06 | HC ---
[facility] [address] CONSULTATION Name: Room #: 357-P ADM IN M.R.#: [id number] Admission: 06/06/19 Attend Phys: Colin Giordano MD Discharge: Date of : 46 Report #: [id number] THIS REPORT FOR: cc: NABIL - Family physician unknown NABIL - Family physician unknown Sophia Rock MD ~ CC: Colin FERRER unknown DATE OF SERVICE: 06/07/2019 REASON FOR CONSULTATION: End-stage renal disease. REASON FOR THE PRESENTATION: Chest pain. HISTORY OF PRESENT ILLNESS: A well-known patient to me, 68-year-old white, took care of back in 04/2019. She is in end-stage renal disease, maintained on dialysis every Monday, Monday and Monday due to longstanding hypertension and diabetes mellitus. She is status post right above-knee amputation. She had major issues with noncompliance with her fluid and salt intake. She recently moved here with her family while living in [place]. She is sent from her dialysis facility after she had about 1 hour of dialysis, she started to have some anxiety episodes and chest pain and was sent for further evaluation. She had major problems with fluid retention during her previous hospital stay due to noncompliance with salt and fluid restriction. As expected, she was into pulmonary edema due to lack of adequate dialysis and ultrafiltration in her dialysis unit. PAST MEDICAL HISTORY: 1. End-stage renal disease, maintained on hemodialysis every Monday, Monday and Monday. 2. Hypertension. 3. Post right AKA. 4. Diabetes mellitus with chronic wounds. 5. Egan's esophagus. 6. Clotted AV graft. 7. Left IJ tunneled catheter. 8. Post-CABG. ALLERGIES: LATEX. SOCIAL HISTORY: Resides in a nursing facility. FAMILY HISTORY: Significant for diabetes mellitus. HOME MEDICATIONS: [facility] [address] [place] [address] CONSULTATION Name: Room #: 357-P ADM IN .R.#: [id number] Admission: 06/06/19 Attend Phys: Colin Giordano MD Discharge: Date of : 46 Report #: [id number] 1. Midodrine. 2. Plavix. 3. Atorvastatin. 4. Carvedilol. REVIEW OF SYSTEMS: GENERAL: Significant for weakness. CARDIOVASCULAR: Significant for chest pain or shortness of breath. PULMONARY: Significant for cough and shortness of breath. GASTROINTESTINAL: No nausea or vomiting. GENITOURINARY: She makes little urine. MUSCULOSKELETAL: As per the history of present illness. PHYSICAL EXAMINATION: GENERAL: She is alert, oriented, anxious. Blood pressure is 130/52. HEAD AND NECK: No jugular venous distention. CHEST: No crackles, but decreased air entry bilaterally. CARDIOVASCULAR: No rub detected. ABDOMEN: Soft, nontender. EXTREMITIES: Lower extremities AKA. No significant edema. LABORATORY DATA: Values reviewed. Hemoglobin is 10.5. Sodium 139, BUN is 42, creatinine is 4.0. Chest x-ray consistent with pulmonary edema. ASSESSMENT, IMPRESSION AND PLAN: 1. End-stage renal disease. 2. Pulmonary edema. 3. Noncompliance with fluid and salt restriction. 4. Coronary artery disease. 5. Post coronary artery bypass graft. 6. Diabetes mellitus. 7. We will arrange for the patient to have the usual hemodialysis today. 8. Other ongoing medical issues are being addressed by the primary team. 9. Stable to be discharged after dialysis back to her facility from my side. By: [id number] [id number] Sophia Rock MD /nt
--- NOTE | ~2019-06-06 | EMS ---
[address] [address] EMS Patient Care Report Name: BARRY GRANADOS Room #: WILLI Barrera#: [id number] Admission: 06/06/19 Attend Phys: Discharge: Date of : 46 Report #: [id number] THIS REPORT FOR: //name// Report Transmitted: 06/06/2019 08:12 EMS Care Summary [facility] MED-ACT Incident [id number] @ 06/06/2019 07:24 Incident Location [address] [place] [address] Patient September Female, 68 Years 1950 Patient Address [address] [place] [address] Patient History Diabetes,Hypertension (HTN),End Stage Renal Disease (ESRD),Anxiety,Anemia,Chronic Kidney Disease, Patient Allergies No known allergies, Patient Medications Colace, Gabapentin, Acetaminophen, Diphenhydramine, Insulin, Alprazolam, Nitroglycerin, Hydralazine, Carvedilol, Omeprazole, Chief Complaint chest pain Disposition Transported No Lights/[place] Dispatch Reason Chest Pain (Non-Traumatic) Transported To [address] [address] EMS Patient Care Report Name: Room #: WILLI Barrera#: [id number] Admission: 06/06/19 Attend Phys: Discharge: Date of : 46 Report #: [id number] [id number] dispatched to C2 chest pain at a dialysis center. Arrived on scene to find a visibly anxious and audibly wheezing 68 year old female complaining of sharp chest pain in the upper right portion of her chest. Patient was leaned back in a recliner visibly struggling to breathe - dialysis center staff stated patient was usually on 2 lpm, but they had boosted her up to 6 lpm in order to maintain her 02 saturation at 95%. Patient stated her chest pain had been going on for approximately one hour, around the same time her dialysis treatment began. Patient states her pain is worse on palpation, and she rates it an 8/10. Patient reports her pain felt initially like a "pulled muscle" and that it's "sometimes dull, but usually sharp". Patient reports she felt some chest pain "last night" but it "went away." Gathering a clear patient history was unsuccessful due to patient's extreme anxiety and frequent questioning about her children and frequently answering questions with "It hurts", and "I'm scared" even when those phrases did not answer the question being asked of her. Dialysis center staff report patient was approximately an hour into her treatment and had pulled off 1/2 liter of fluid from patient. A: See assessments tab Patient contact made in treatment area of dialysis center. Patient was assisted in sitting up. Vitals assessed. History gathered from patient and dialysis center staff. 12 lead performed - normal sinus throughout all leads with no ectopy or acute changes. Patient's lungs auscultated. As noted, no wheezes were heard upon auscultation. Wheezes only able to be heard without auscultation. Dialysis center staff called patient's children and left messages with both - patient was informed of this but continued to ask about calling them even when plan to contact them from the hospital was relayed to patient. Nebulized albuterol treatment initiated with 6 lpm O2. Patient moved to cot by sheet pull. Patient secured to cot per protocol. Patient moved to and loaded into cot without incident. Patient continued to ask about her children and was still incredibly anxious. Patient informed that hospital would follow up and attempt to reach them. This seemed to calm patient slightly. Vitals reassessed. 324 mg ASA given. Transport to [facility] initiated. Vitals and patient condition monitored throughout transport. Patient's wheezes and anxiety seemed to ease when patient was instructed to breathe slowly and deeply and patient was informed that all field tests and her vitals appeared normal. Biocom given en route. Patient care transferred to RNs at [facility] ER. Patient left alert and oriented with reduced wheezes but same degree of chest pain in room 12. Initial Vitals @08:01P: 58,R: 16,BP: 125/64,Pain: 8/10,GCS: 15,EtCO2: 42,SpO2: 98,Revised Trauma: 12, [facility] [address] [place] [address] EMS Patient Care Report Name: Room #: REG Holly#: [id number] Admission: 06/06/19 Attend Phys: Discharge: Date of : 46 Report #: [id number] @07:54P: 58,R: 16,Pain: 8/10,GCS: 15,SpO2: 100,OR Suspected: false @07:37P: 59,R: 18,Pain: 8/10,GCS: 15,SpO2: 96,OR Suspected: false @PTAP: 59,R: 18,BP: 124/53,Pain: 8/10,GCS: 15,SpO2: 99,Revised Trauma: 12, @07:53P: 59,R: 16,BP: 122/45,Pain: 8/10,GCS: 15,SpO2: 100,Revised Trauma: 12, Assessments @07:38MENTAL:Person Oriented,Time Oriented,Place Oriented,Event Oriented,SKIN:HEENT:LUNG SOUNDS:Left Upper: No Abnormalities,Right Upper: No Abnormalities,Left Lower: No Abnormalities,Right Lower: No Abnormalities,ABDOMEN:Left Upper: No Abnormalities,Right Upper: No Abnormalities,Left Lower: No Abnormalities,Right Lower: No Abnormalities,PELVIS//GI:EXTREMITIES:Left Leg: Edema,Right Leg: Other,PULSE:Radial: 2+ Normal,NEURO: Impression Chest Pain / Discomfort Procedures @07:3712-Lead ECGResponse: UnchangedSucceeded@07:38ALS AssessmentResponse: UnchangedSucceeded@07:54Aspirin - 324 Milligrams (mg) - OralResponse: Unchanged@PTANitroglycerin - 0.4 Milligrams (mg) - SublingualResponse: Unchanged Timeline SEWING TECHNIQUES DEMONSTRATOR,Nitroglycerin - 0.4 Milligrams (mg) - Sublingual,Response: Unchanged SEWING TECHNIQUES DEMONSTRATOR,BP: 124/53 M,PULSE: 59,RR: 18 R,SPO2: 99 Ox,ETCO2: ,BG: ,PAIN: 8,GCS: 15, 07:24,Call Received 07:24,Psap Call 07:24,Dispatched 07:25,En Route 07:33,On Scene 07:36,At Patient 07:37,12-Lead ECG,Response: UnchangedSucceeded, 07:37,BP: / M,PULSE: 59,RR: 18 R,SPO2: 96 Ox,ETCO2: ,BG: ,PAIN: 8,GCS: 15, 07:38,ALS Assessment,Response: UnchangedSucceeded, 07:53,BP: 122/45 M,PULSE: 59,RR: 16 R,SPO2: 100 Ox,ETCO2: ,BG: ,PAIN: 8,GCS: 15, 07:54,Aspirin - 324 Milligrams (mg) - Oral,Response: Unchanged 07:54,BP: / M,PULSE: 58,RR: 16 R,SPO2: 100 Ox,ETCO2: ,BG: ,PAIN: 8,GCS: 15, 07:55,Depart Scene 08:01,BP: 125/64 M,PULSE: 58,RR: 16 R,SPO2: 98 Ox,ETCO2: 42 ,BG: ,PAIN: 8,GCS: 15, 08:02,At Destination 08:23,Call Closed Disclaimer [address] [address] EMS Patient Care Report Name: Room #: REG SUSANA Barrera#: [id number] Admission: 06/06/19 Attend Phys: Discharge: Date of : 46 Report #: [id number] v1.1 Copyright 2020 [employer] This EMS Care Summary contains data elements from the applicable legal record (which may be displayed differently). It is designed to provide pertinent information for the following purposes: continuity of care, clinical quality, and state data reporting. The complete legal record is available to ED staff and administrators of the receiving hospital in [employer] Patient Tracker. All data is provided "as is."
[2019-06-06 08:13] VITALS: BP 119/42
[~2019-06-06 08:13] MED LIST: ALBUTEROL2.5 MG/0.5 INH; AMIODARONE HCL400 MG PO; ASA81BEC PO; AUGMENTIN 875-1 EACH PO; DULERA 100 MCG/13 GM INH; ELIQUIS2.5 MG PO; HUMALOG100 UNIT/1 SUBQ; LANTUS SUBQ; LIPITOR 20 MG T20 M1 PO; MIDODRINE HCL 55 M1 PO; PLAVIX 75 MG TA75 MG PO; PREVACID30 MG PO; RENVELA800 MG PO; ROPINIROLE HCL2 M1 PO; SPIRIVA18 MCG INH; SUPER THERAVIT1 EACH PO; TOPROL XL25 MG PO
--- NOTE | 2019-06-06 09:04 | NUR ---
PAGED IV TEAM TO OBTAIN IV AND BLOOD
--- NOTE | 2019-06-06 09:10 | EKG ---
[facility] [place] [address] ELECTROCARDIOGRAM REPORT Name: Room #: [facility]..#: [id number] Admission: 06/06/19 Attend Phys: Discharge: Date of : 46 Report #: [id number] THIS REPORT FOR: cc: FAM - Family physician unknown FAM - Family physician unknown Arben Velasco MD [facility] ~ THIS REPORT FOR: //name// [facility] ED Test Date: 2019-06-06 Test Time: 08:24:48 Pat Name: September Department: Room: Gender: F Chamber Magistrate: isabel : 1950 Requested By: Raghav Salazar Order Number: [id number] MD: Arben Velasco Measurements Intervals Mitchell Rate: 58 P: 54 HI: 65 QRS: 180 QRSD: 124 T: -62 QT: 519 QTc: 510 Interpretive Statements Sinus rhythm Nonspecific intraventricular conduction delay Nonspecific ST and T wave abnormality Poor R wave progression Compared to ECG 04/25/2019 14:21:37 No significant change was found Electronically Signed On 06-06-2019 9:08:50 ASSISTANT BUYER by Arben Velasco [email or web address] <ELECTRONICALLY SIGNED> By: Arben Velasco MD, [facility] [birth year]/1908 3 3 Arben Velasco MD, [facility] /EPI
[2019-06-06 10:10] LABS: ABSOLUTE NEUTROPHILS 3.7 thou/uL (1.4-8.2); BASOPHILS 0.8 % (0.0-2.0); HEMATOCRIT 34.8 % (37.0-47.0); HEMOGLOBIN 10.5 gm/dL (12.0-15.0); LYMPHOCYTES 12.9 % (24.0-44.0); MCH 28.4 pg (26.0-34.0); MCHC 30.3 g/dL (28.0-37.0); MCV 93.7 fL (80.0-100.0); MONOCYTES 9.7 % (1.0-8.0); PLATELET COUNT 280 thou/uL (150-400); POLYS 68.6 % (36.0-66.0); RBC 3.71 mil/uL (4.20-5.00); RDW 17.5 % (10.5-14.5); WBC 5.4 thou/uL (4.0-11.0)
[2019-06-06 10:21] LABS: ANION GAP 8 mmol/L (7-16); BUN 42 mg/dL (7-18); CHLORIDE 101 mmol/L (98-107); CO2 30 mmol/L (21-32); GLUCOSE 116 mg/dL (74-106); POTASSIUM 3.8 mmol/L (3.5-5.1); SODIUM 139 mmol/L (136-145)
[2019-06-06 10:29] LABS: TROPONIN-I <0.06 ng/mL (<0.06)
[2019-06-06 12:15] VITALS: BP 124/39
[2019-06-06 13:08] LABS: APTT 32.4 Seconds (24.5-32.8); PROTIME 10.5 Seconds (9.3-11.4)
[2019-06-06 13:10] VITALS: BP 127/37
--- NOTE | 2019-06-06 13:12 | NUR ---
CALLED BOTH SON BRIAN AND SECOND FAMILY MEMBER LISTED ON PAPERWORK, NO ANSWER AT EITHER NUMBERS.
[2019-06-06 15:31] VITALS: BP 125/52
[2019-06-06] MEDS ORDERED: XANAX 0.25 MG0.25 MG PO (15:45)
[2019-06-06] MEDS ORDERED: COLACE100 MG PO (15:46)
[2019-06-06] MEDS ORDERED: CARVEDILOL25 MG PO (15:47)
[2019-06-06] MEDS ORDERED: GABAPENTIN100 MG PO (15:49)
[2019-06-06 15:50] LABS: CLARITY HAZY; COLOR YELLOW; SOURCE CHEST; TOTAL VOLUME 55 mL
[2019-06-06] MEDS ORDERED: SINGULAIR 10 MG10 MG PO (15:50)
[2019-06-06] MEDS ORDERED: HYDRALAZINE 2525 MG PO (15:50)
[2019-06-06] MEDS ORDERED: NITROSTAT0.4 M1 SUBLING (15:53)
[2019-06-06] MEDS ORDERED: OMEPRAZOLE 20 M20 M1 PO (15:54)
[2019-06-06 15:58] LABS: BF NUCLEATED CELLS 405; BF RBC 775
[2019-06-06] MEDS ORDERED: OTHER PO (15:58)
[2019-06-06 16:40] LABS: BF MACROPHAGE 73; BF NEUTROPHILS 21
--- NOTE | 2019-06-06 17:12 | NUR ---
ASSUMED CARE APPROX 1315. PT TRANSPORTED FROM DIALYSIS CENTER TO ER. PT ADMITTED TO [facility]. TELE MONITOR PLACED ON PT PER ORDERS. PT CAME UP FROM ER ON OXYGEN SET AT 2L NC PER ORDERS. FALL PRECAUTIONS WERE PUT IN PLACE. SHE WAS VERY TEARFUL AND ANXIOUS UPON ARRIVAL. PT'S DAUGHTER, QUITA, ARRIVED AT BEDSIDE APPROX 1330. PT'S PAIN LEVEL ASSESSED AND SHE REPORTED NO PAIN AT THAT TIME. CONSENTS SIGNED BY QUITA GARCIA. WILL CONTINUE TO MONITOR.
[2019-06-06 19:02] VITALS: BP 104/32
[2019-06-06 23:50] VITALS: BP 113/37
[2019-06-07 03:01] VITALS: BP 132/52
--- NOTE | 2019-06-07 06:13 | NUR ---
PT MAKING SLOW PROGRESS TOWARDS GOALS. LUNGS CTA ANTERIORLY, DIMINISHED IN BOTH POSTERIOR LUNG PHELPS. THIS AM PT C/O "WHEEZING." DID NOT FAINT WHEEZING OVER BOTH UPPER ANTERIOR LOBES. ALSO C/O "TIGHTNESS" OVER RIGHT UPPER CHEST. ORDERS RECEIVED FOR DUONEB/TYLENOL. RT PROVIDED RESP TX. PT CALM AND RELAXED AFTER THAT. CONTINUE TO MONITOR.
[2019-06-07] MEDS ORDERED: IPRAT-ALBUT 0.5-3 ML INH (08:06)
[2019-06-07] MEDS ORDERED: VITAMIN D22000 UNIT PO (08:08)
[2019-06-07 08:22] VITALS: BP 138/56
[2019-06-07 09:56] LABS: SOURCE CHEST
--- NOTE | 2019-06-07 15:48 | NUR ---
DISCHARGE ADMITTED FROM [facility]. PATIENT DISCHARGING BACK TO [facility] THIS EVENING. PATIENT CURRENTLY IN DIALYSIS. DISCHARGE ORDERS, DISCHARGE SUMMARY, H&P, AND DIALYSIS CLINICALS FAXED TO [facility] ADMISSIONS. TRANSPORTATION ARRANGE PER [facility] FOR 8:00 PM. CHART COPY COMPLETED PER MURAL ARTIST. UNIT NOTIFIED OF TRANSPORTATION TIME. CONTACT NUMBER FOR REPORT PROVIDED. [phone]. PATIENT DISCHARGE ORDERS, DISCHARGE SUMMARY, H&P AND DIALYSIS CLINICALS FAXED TO PATIENTS [facility]. CLINIC NOTIFIED PER UNIT SW. PATIENTS DAUGHTER NOTIFIED PER UNIT SW.
--- NOTE | 2019-06-07 16:13 | NUR ---
INITIAL ASSESSMENT/DISCHARGE NOTE: Received consult. VALERIANO reviewed chart and spoke with nursing and attending physician. Pt was admitted from her dialysis clinic yesterday due to right pleural effusion. Pt had thoracentesis yesterday. Pt is medically stable for discharge back to [facility] after dialysis today. facilities planner sent clinical info/orders to [facility] and to [facility]. VALERIANO spoke with Tia at [facility] to notify of pt's discharge. Pt will resume her regular outpatient dialysis (T-R-S 0630) tomorrow morning. Transportation scheduled for 1999 this evening per facility's arrangements. VALERIANO left voice message for pt's dtr, Van, to provide update and notify of discharge. Chart copy requested. Nursing to call report. No additional SW needs identified at this time, but is available to assist should needs arise. [facility]-- [facility] DIALYSIS--
[2019-06-07 17:11] LABS: BODY FLUID ALBUMIN 1.6 g/dL (Not Estab.); BODY FLUID AMYLASE 28 U/L (()); BODY FLUID GLUCOSE 115 mg/dL (()); BODY FLUID LDH 64 IU/L (()); BODY FLUID PROTEIN 2.7 g/dL (())
[2019-06-07 19:08] VITALS: BP 133/56
--- NOTE | 2019-06-07 20:12 | NUR ---
Left unit with all personal belongings after IV d/c'd and telelmetry pack removed. tolerated HD this evening finishing at 1950. 3.5 liters removed. D/C packet given to transport staff at bedside.
[2019-06-08 01:07] LABS: HEPATITIS B SURFACE AG Negative (Negative)
== END 2019-06-07 20:10 | DRG 186 ==
LOC: ER 08:13 → 3W 12:12 → EROBS 12:12 → 3W 13:12
PROVIDERS: Emergency Medicine; Hospitalist; ADMIT Hospitalist
PROC: 0W993ZZ Drainage of Right Pleural Cavity, Percutaneous Approach (ICD-10-PCS; principal; 2019-06-07)
PROC: 5A1D70Z Performance of Urinary Filtration, Intermittent, Less than 6 Hours Per Day (ICD-10-PCS; principal; 2019-06-07)
DX: J90 Pleural effusion, not elsewhere classified (principal); N18.6 End stage renal disease; J81.1 Chronic pulmonary edema; I12.0 Hypertensive chronic kidney disease with stage 5 chronic kidney disease or end stage renal disease; I48.91 Unspecified atrial fibrillation; E11.51 Type 2 diabetes mellitus with diabetic peripheral angiopathy without gangrene; J45.909 Unspecified asthma, uncomplicated; G25.81 Restless legs syndrome; E11.22 Type 2 diabetes mellitus with diabetic chronic kidney disease; I25.10 Atherosclerotic heart disease of native coronary artery without angina pectoris; Z95.1 Presence of aortocoronary bypass graft; Z98.41 Cataract extraction status, right eye; E11.42 Type 2 diabetes mellitus with diabetic polyneuropathy; Z90.49 Acquired absence of other specified parts of digestive tract; Z79.01 Long term (current) use of anticoagulants; Z91.041 Radiographic dye allergy status; Z91.040 Latex allergy status; Z87.891 Personal history of nicotine dependence; Z83.3 Family history of diabetes mellitus; Z91.19 Patient's noncompliance with other medical treatment and regimen; Z89.511 Acquired absence of right leg below knee; Z79.82 Long term (current) use of aspirin; Z79.899 Other long term (current) drug therapy; Z99.2 Dependence on renal dialysis
CPT/HCPCS: 10879; 32100

== ENCOUNTER 2019-06-24 12:10 | Inpatient (IN) | payer OTHER ==
[~2019-06-24] VITALS: Ht 152.4 cm; Wt 59.8 kg
[~2019-06-24 12:10] MED LIST changes: +CARVEDILOL25 MG PO; +COLACE100 MG PO; +GABAPENTIN100 MG PO; +HYDRALAZINE 2525 MG PO; +IPRAT-ALBUT 0.5-3 ML INH; +NITROSTAT0.4 M1 SUBLING; +OMEPRAZOLE 20 M20 M1 PO; +OTHER PO; +SINGULAIR 10 MG10 MG PO; +VITAMIN D22000 UNIT PO; +XANAX 0.25 MG0.25 MG PO
[2019-06-24 12:12] VITALS: BP 151/52
--- NOTE | 2019-06-24 12:57 | EKG ---
[facility] [place] [address] ELECTROCARDIOGRAM REPORT Name: IDALMIS Room #: [facility] M.R.#: [id number] Admission: Attend Phys: Discharge: Date of : 46 Report #: [id number] THIS REPORT FOR: cc: FAM - Family physician unknown FAM - Family physician unknown Arben Velasco MD [facility] ~ THIS REPORT FOR: //name// [facility] ED Test Date: 2019-06-24 Test Time: 12:16:01 Pat Name: September Department: Room: Gender: F Paper Products Printer: JGeovanna : 1950 Requested By: Raghav Salazar Order Number: [id number] MD: Arben Velasco Measurements Intervals [place] Rate: 79 P: 43 SD: 161 QRS: 195 QRSD: 122 T: 26 QT: 398 QTc: 457 Interpretive Statements Sinus rhythm Nonspecific intraventricular conduction delay Nonspecific ST and T wave abnormality Compared to ECG 06/06/2019 08:24:48 Nonspecific change in the ST and T wave segments Electronically Signed On 06-24-2019 12:56:23 CDT by Arben Velasco [email or web address] <ELECTRONICALLY SIGNED> By: Arben Velasco MD, [facility] 06/24/19 1256 1216 15 Arben Velasco MD, [facility] /EPI
[2019-06-24 13:25] LABS: HEMATOCRIT 35.4 % (37.0-47.0); HEMOGLOBIN 11.3 gm/dL (12.0-15.0); MCH 29.1 pg (26.0-34.0); MCHC 31.8 g/dL (28.0-37.0); MCV 91.6 fL (80.0-100.0); RBC 3.87 mil/uL (4.20-5.00); RDW 16.7 % (10.5-14.5); WBC 4.6 thou/uL (4.0-11.0)
[2019-06-24 13:42] LABS: CALCIUM 8.8 mg/dL (8.5-10.1); CREATININE 4.7 mg/dL (0.6-1.0); TROPONIN-I 0.22 ng/mL (<0.06)
[2019-06-24 13:44] LABS: POTASSIUM 6.6 mmol/L (3.5-5.1)
[2019-06-24 14:05] LABS: HCO3 20.2 mmol/L (22.0-26.0); PCO2 47.6 mmHg (35.0-45.0); PO2 72.5 mmHg (80.0-100.0); sO2 91.9 % (92.0-98.0)
[2019-06-24 14:06] LABS: pH 7.245 (7.360-7.450)
[2019-06-24] MEDS ORDERED: RENVELA0.8 GM PO (14:58)
[2019-06-24] MEDS ORDERED: ALPRAZOLAM XR3 MG PO (14:58)
[2019-06-24 15:15] VITALS: BP 132/59
[2019-06-24 16:12] VITALS: BP 136/64
[2019-06-24 16:30] VITALS: BP 125/71
--- NOTE | 2019-06-24 19:54 | NUR ---
PT admitted from ER FOR SOB , COUGH AND WHEEZING, PT IS A&OX3, PT IS ON O2 4L/MIN/NC, RN HAS CALLED DR AND CONSULTS,NEW ORDER RECEIVED, PT'S SOB HAS IMPROVED, PT IS ON ISOLATION FOR R/O COVID, PT'S VS AND O2SAT ARE STABLE AT THIS TIME.RN WILL REPORTED TO NEXT SHIFT TO KEEP EYE ON PT.
[2019-06-24 19:55] VITALS: BP 121/39
[2019-06-24 23:07] VITALS: BP 133/38
[2019-06-25] VITALS (12 sets, daily range): BP systolic 90–144; BP diastolic 15–74
[2019-06-25 04:51] LABS: HEMATOCRIT 35.9 % (37.0-47.0); HEMOGLOBIN 10.9 gm/dL (12.0-15.0); MCH 28.2 pg (26.0-34.0); MCHC 30.5 g/dL (28.0-37.0); MCV 92.6 fL (80.0-100.0); PLATELET COUNT 210 thou/uL (150-400); RBC 3.87 mil/uL (4.20-5.00); RDW 17.2 % (10.5-14.5)
[2019-06-25 05:02] LABS: WBC 1.8 thou/uL (4.0-11.0)
[2019-06-25 05:05] LABS: ALBUMIN 3.5 g/dL (3.4-5.0); CALCIUM 8.7 mg/dL (8.5-10.1); CREATININE 5.5 mg/dL (0.6-1.0); MAGNESIUM 2.6 mg/dL (1.8-2.4); PHOSPHORUS 7.5 mg/dL (2.5-4.9)
[2019-06-25 05:08] LABS: POTASSIUM 6.1 mmol/L (3.5-5.1)
--- NOTE | 2019-06-25 05:34 | NUR ---
RECIEVED CARE OF THIS PATIENT AT 1900. PATIENT ALERT AND ORIENTED X4 BUT VERY FORGETFUL IV IN LFA PATENT. PATIENT IS A DAILYSIS PATIENT ON T,T,S. HAS TESSIO ON L IJ. HAS AV SHUNT IN R UPPER ARM THAT DOES NOT WORK. PATIENT IS ANURIC. HAS A RBKA. USES BEDPAN FOR BM'S. REMAINS IN ISO FOR CO-VID. ACCUCHECKS ACAND HS, WAS 180 AT HS, 3 UNITS LISPRO INSULIN GIVEN. PATIENT ON 6L O2. GETS RT TX Q1HR IF NEEDED. HAS ASKED SEVERAL TIMES FOR TX. DENIES PAIN. SLEPT OFF AND ON DURING NIGHT.
--- NOTE | 2019-06-25 05:44 | NUR ---
PATIENT HAD CRITICAL LAB THIS AM. WBC WAS 1.8 AND K+ WAS 6.1. BOTH LABS WAS CALLED TO A [facility]. NO NEW ORDERS OBTAINED. SPUTUM SAMPLE WAS COLLECTED AT 0155 AND TAKEN TO LAB.
[2019-06-25 06:51] LABS: ABSOLUTE NEUTROPHILS 1.6 thou/uL (1.4-8.2); ANISOCYTOSIS 1+; PLATELET ESTIMATE NORMAL; POIKILOCYTOSIS 1+; POLYCHROMASIA 1+
[2019-06-25 10:40] LABS: BE(vivo) -8.5 mmol/L (-2 to +3); HCO3 20.3 mmol/L (22.0-26.0); PCO2 56.2 mmHg (35.0-45.0); PO2 96.6 mmHg (80.0-100.0); pH 7.175 (7.360-7.450); sO2 95.4 % (92.0-98.0)
--- NOTE | 2019-06-25 12:19 | NUR ---
Assumed patient care at 0715. Patient was alert and oriented x's 4. Vital signs were as follows: BP 144/56, Pulse 69, Axillary Temperature 96.4. Patient did not have her Oxygen on and was telling Dr Schofield "I am having trouble breathing!" This nurse put nasal cannula back on with Oxygen @ 4 Liters. O2 Sats were 97%. Dr Schofield ordered an Arterial Blood Gas "STAT." By this time, patient had consumed 90% of her breakfast and Dialysis Nurse was in Room, Dialyzing patient. Dialysis Nurse called this nurse to report that "patient was using more accessory muscles to breath"; as Respiratory Therapy was calling this nurse via telephone to report "critical Arterial Blood Gas Labs." This nurse then called Dr Schofield, whom ordered for patient to be moved to ICU and for Dr Corrales to be notified. Dialysis nurse called Dr Corrales. Dr Corrales to call family about putting patient on "Comfort Measures." This nurse and TAWNY Maier, took patient to ICU. [id number] report given to Radha Gillespie RN. This nurse contacted patient's son, Esteban and daughter, Leida to report that patient had been moved to ICU, Room 240, due to decline in health. Dialysis nurse called
[2019-06-25 12:39] LABS: CALCIUM 8.2 mg/dL (8.5-10.1); CREATININE 5.1 mg/dL (0.6-1.0); POTASSIUM 5.3 mmol/L (3.5-5.1)
[2019-06-25 13:34] LABS: BE(vivo) -9.2 mmol/L (-2 to +3); HCO3 17.3 mmol/L (22.0-26.0); PCO2 39.7 mmHg (35.0-45.0); PO2 90.4 mmHg (80.0-100.0); sO2 95.7 % (92.0-98.0)
[2019-06-25 13:35] LABS: pH 7.256 (7.360-7.450)
--- NOTE | 2019-06-25 13:57 | NUR ---
ASSUMED CARE AT 1230 IN ICU. BIPAP ON RESTING AT THIS TIME REST RATE 20 DOZING OFF. RESPIRATIONS UNLABORED AT THIS TIME. XANAX GIVEN TO HELP ANXIETY.
--- NOTE | 2019-06-25 14:34 | NUR ---
PAGED DR. TYSON AND HE REPORTED THAT HE AND DR. EVANS SPOKE AND THE PLAN WAS TO MAKE PATIENT COMFORT CARE ONLY.
--- NOTE | 2019-06-25 14:49 | NUR ---
INITIAL ASSESSMENT: Received consult. VALERIANO reviewed chart and spoke with attending physician. Pt was admitted from [facility] due to hyperkalemia/COPD exacerbation. Pt with hx of ESRD. Pt known to VALERIANO from previous hospitalizations. Pt is a shelter care resident at [facility]. VALERIANO confirmed with Deisi in admissions. Pt goes to dialysis T-R-S at 0630 at [facility]. Pt transferred to ICU from 3W earlier today due to change in condition. Pt in Enhanced Isolation to r/o COVID-19. Pt may be made comfort care. VALERIANO is following to assist as needed with discharge planning.
--- NOTE | 2019-06-25 15:39 | NUR ---
IV TEAM INSERTING CENTRAL LINE.
--- NOTE | 2019-06-25 16:25 | NUR ---
vascular access CONSULTED FOR CVAD. DISCUSSED BENEFITS AND RISK WITH PT,VERBALIZED UNDERSTANDING. PT HAS OLD FISTULA RIGHT ARM AND CURRENT TEESIO IN LEFT CHEST. RIJ AND REJ WIDELY PATENT WITH USG, ATTEMPTED BOTH VESSELS BUT UNABLE TO PASS GUIDEWIRE. CHIDI HECTOR NOTIFIED IR AND PLACED NEW ORDER
--- NOTE | 2019-06-25 18:16 | NUR ---
ATE 100% OF DINNER. XANAX GIVEN FOR ANXIETY. PATIENT CO LEFT RIB PAIN RATES 4 OR 5 COUGH NON PRODUCTIVE. LUNGS DIMINSHED WITH CRACKLES IN LEFT SIDE. CONFUSED AT TIMES. ORIENT TO NAME. SPOKE WITH FAMILY ON PHONE AND THAT HELPED ANXIETY.
[2019-06-26] VITALS (15 sets, daily range): BP systolic 99–145; BP diastolic 17–127
--- NOTE | 2019-06-26 00:20 | NUR ---
PATIENT SCREAMING, "HELP, I'M TRAPPED IN THE LIBRARY". ALSO BANGING CALL LIGHT ON BED RAIL. PATIENT VERY CONFUSED, RESPIRATIONS GREATER THAN 30, OXYGEN GREATER THAN 955 ON 3L NASAL CANNULA. NURSE PRACTITIONER NOTIFIED, NEW ORDERS NOTED. WILL CONTINUE TO MONITOR.
--- NOTE | 2019-06-26 06:09 | NUR ---
PATIENT CONFUSED, RE-ORIENTED TO SITUATION. ATTEMPTED TO DRAW LABS, MACIEL GREEN TOP AND PATIENT STARTED JECKING HAND. REFUSED TO BE STUCK AGAIN, NURSE PRACTITIONER NOTIFIED. WILL ATTEMPT TO DRAW REMAINING LABWORK AT A LATER TIME.
[2019-06-26 06:24] LABS: CALCIUM 8.2 mg/dL (8.5-10.1)
[2019-06-26 06:28] LABS: POTASSIUM 4.3 mmol/L (3.5-5.1)
[2019-06-26 10:33] LABS: ABSOLUTE NEUTROPHILS 2.9 thou/uL (1.4-8.2); HEMATOCRIT 36.2 % (37.0-47.0); HEMOGLOBIN 11.1 gm/dL (12.0-15.0); LYMPHOCYTES 4.3 % (24.0-44.0); MCH 28.4 pg (26.0-34.0); MCHC 30.8 g/dL (28.0-37.0); MCV 92.4 fL (80.0-100.0); MONOCYTES 1.6 % (1.0-8.0); PLATELET COUNT 188 thou/uL (150-400); POLYS 94.1 % (36.0-66.0); RBC 3.92 mil/uL (4.20-5.00); RDW 16.4 % (10.5-14.5); WBC 3.1 thou/uL (4.0-11.0)
--- NOTE | 2019-06-26 14:56 | NUR ---
VALERIANO reviewed chart and spoke with nursing and attending physician. Pt is in Enhanced Isolation to r/o COVID-19. No plans for comfort care at this time. Pt remains a full code. Pt is on 4-5L of O2 via NC. VALERIANO spoke with pt's dtr, Van, via phone to provide update. Van confirms plan is for pt to return to [facility] when medically stable for discharge. Pt does go to dialysis T-R-S at 0630. [facility] provides transportation. senior materials planner to fax clinical info to [facility] for review. VALERIANO is following to assist as needed with discharge planning.
--- NOTE | 2019-06-26 15:47 | NUR ---
FAXED CLINICAL UPDATE TO [facility] RECEIVED CONFIRMATION AND LEFT MSG WITH TERESA IN ADM. DP TO FOLLOW.
--- NOTE | 2019-06-26 17:08 | NUR ---
RECEIVED PT'S CARE AROUND 0710; PT. ON BED; RESTING WITH EYES CLOSED; SR ON THE MONITOR; DURING AM ASSESSMENT PT. ALERT TO PLACE; ST. "I AM HERE BECAUSE I AM SICK"; FORGETFUL; CONFUSED THROUGH THE DAY; AM MEDICATIONS GIVEN; AMRIK ARM IV INFILTRATED; C/O PAIN; D/C IT; PRN PAIN MEDICATION GIVEN; RE-ASSESEMENT; PT. RESTING WITH EYES CLOSED; CONSENT FOR CENTRAL LINE OBTAINED FROM DAUGHTER; RESTLESS DURING THE AFTERNOON AFTER ATTEMPT FOR CENTRAL LINE; PRN MEDICATION GIVEN; CLOSE TO 1700 PT. FOUND SITTIN AT THE END OF BED WHILE SHOUTTING "HELP ME" "HELP ME'; CONFUSED; BACK TO BED; DBP LOW; PHYSICIAN PAGED; WAITING CALL BACK; SR ON THE MONITOR; 02 TITRATE TO 2L; 96%; ASSESSMENT CHARGED; FOLLOWING POC; WILL PASS ON REPORT;
--- NOTE | 2019-06-26 18:03 | NUR ---
VAT CONSULTED FOR A CL FOR THIS PT. ATTEMPT MADE YESTERDAY WAS UNSUCCESSFUL. PT NEEDING LABS AND IV ABX. IS ESRD WITH A NON-FUNTIONING FISTULA IN THE RT ARM. ATTEMPTED X2 ON RT IJ AND NOT ABLE TO THREAD WIRE. PT VERY AGGITATED WITH CHG PREP AND WAS UNCOOPERATIVE WITH REST OF PROCEDURE. ABORTED AND PT REFUSED TO HAVE AN IV PLACED IN HER LT ARM. ADVISED RN
--- NOTE | 2019-06-26 21:35 | HC ---
[facility] [place] [address] CONSULTATION Name: Room #: 240-P ADM IN M.R.#: [id number] Admission: 06/24/19 Attend Phys: Simon Schofield MD Discharge: Date of : 46 Report #: [id number] THIS REPORT FOR: cc: FAM - Family physician unknown FAM - Family physician unknown Sha Irving MD ~ CC: [facility] unknown Simon Schofield DATE OF SERVICE: 06/25/2019 INFECTIOUS DISEASE CONSULTATION REASON FOR CONSULTATION: I was asked to evaluate concerning bilateral pulmonary infiltrates and respiratory failure. HISTORY OF PRESENT ILLNESS: The patient is a 69-year-old with underlying end-stage renal disease, cardiomyopathy and COPD, who was hospitalized earlier this month with congestive heart failure. She has noticed increased shortness of breath and cough over the last 48 hours. Because of such, she was hospitalized on 06/24/2019. She has been afebrile, but has had progressive shortness of breath. ABG drawn today on 4 liters showed a pO2 of 96, pCO2 of 56 and a pH of 7.17 with a lactate of 1.5. She has been relatively anxious. Blood pressure has been stable. Due to her progressive shortness of breath, she was taken down to the Intensive Care Unit from the Med/Surg floor. She denies any chest pain or palpitations. No hemoptysis. Small amount of sputum produced. No pleuritic chest pain. She is dyspneic with activity or speaking. No nausea, vomiting or diarrhea. No dysuria or frequency. No rashes. She does reside at a local fdc. REVIEW OF SYSTEMS: A 14-point review of systems was negative other than what has been described above. ALLERGIES: LATEX and CONTRAST DYE. MEDICATIONS: Insulin, Renvela, Xanax, Coreg, Singulair, albuterol, vitamin D, atorvastatin, Plavix, Primatene, Colace, gabapentin, hydralazine, p.r.n. nitroglycerin, omeprazole. She was started on vancomycin, meropenem, Levaquin and received 1 dose of azithromycin. PAST MEDICAL HISTORY: Tubal ligation, coronary artery disease, coronary artery bypass grafting, coronary stents, cardiomyopathy, tonsillectomy, cataract surgery of right eye, cholecystectomy, hypertension, asthma, restless leg syndrome, right tibial plateau fracture, diabetes, end-stage renal disease, Egan's esophagitis, gastroesophageal reflux, recent [place]. [address] [address] CONSULTATION Name: Room #: 240-P [facility] IN [place].#: [id number] Admission: 06/24/19 Attend Phys: Simon Schofield MD Discharge: Date of : 46 Report #: [id number] FAMILY HISTORY: No tuberculosis. SOCIAL HISTORY: Past smoker, no significant alcohol intake, no HIV risks. PHYSICAL EXAMINATION: VITAL SIGNS: Afebrile. Pulse was 69, blood pressure 144/56, respiratory rate 34. On 4 liters of oxygen. She was taken down. This was prior to her going to the Intensive Care Unit, now is on BiPAP. GENERAL: She was alert, somewhat anxious. SKIN: Without rash. No adenopathy. HEENT: Eyes without conjunctivitis or scleral icterus. HEART: Regular, without murmur. LUNGS: Tachypneic. Decreased breath sounds in the bases with bilateral crackles and wheezes. ABDOMEN: Soft, nontender, no hepatosplenomegaly or mass. EXTREMITIES: Trace peripheral edema. BKA on the right. All cranial nerves intact. Alert, normal mood, some anxiety. GENITAL AND RECTAL: Not performed. Laboratory reviewed. Microbiology reviewed. Chest x-ray reviewed. RECTAL: She had a left neck tunneled catheter in place. IMPRESSION: 1. A 69-year-old with respiratory failure, bilateral pulmonary infiltrates concerning for both bacterial, healthcare associated and viral infection. She has underlying cardiomyopathy contributing with stress-induced ischemia. 2. End-stage renal disease. 3. Leukopenia. 4. Anxiety disorder. 5. History of peripheral vascular disease and recent gastrointestinal bleed. 6. The patient had increased risk for mortality given her comorbidities and will require critical care setting. 7. I have discussed with nursing staff at the bedside along with attending and we will discuss further with critical care physician. RECOMMENDATIONS: We will continue ICU support. Would favor early intubation and maintain adequate oxygenation. Decrease her corticosteroids if possible. Adjust her antibiotics and antiviral treatment. We will obtain cultures and PCR studies. <ELECTRONICALLY SIGNED> By: Sha Irving MD 06/26/19 2135 1313 1347 Sha Irving MD /nt
[2019-06-27] VITALS (37 sets, daily range): BP systolic 96–145; BP diastolic 36–55
[2019-06-27 08:37] LABS: ABSOLUTE NEUTROPHILS 3.5 thou/uL (1.4-8.2); HEMATOCRIT 33.4 % (37.0-47.0); HEMOGLOBIN 10.5 gm/dL (12.0-15.0); LYMPHOCYTES 2.3 % (24.0-44.0); MCH 28.8 pg (26.0-34.0); MCHC 31.5 g/dL (28.0-37.0); MCV 91.4 fL (80.0-100.0); MONOCYTES 1.9 % (1.0-8.0); PLATELET COUNT 212 thou/uL (150-400); POLYS 95.8 % (36.0-66.0); RBC 3.65 mil/uL (4.20-5.00); RDW 16.7 % (10.5-14.5); WBC 3.6 thou/uL (4.0-11.0)
[2019-06-27 08:46] LABS: CALCIUM 8.2 mg/dL (8.5-10.1); CREATININE 4.1 mg/dL (0.6-1.0); POTASSIUM 4.7 mmol/L (3.5-5.1)
--- NOTE | 2019-06-27 09:01 | NUR ---
ALERT AND ORIENTED, FORGETFUL AND ANXIOUS AT TIMES. VITALS STABLE AND DENIES PAIN. ON HEMODIALYSIS AT THIS TIME.
--- NOTE | 2019-06-27 09:26 | EKG ---
[facility] [place] [address] ELECTROCARDIOGRAM REPORT Name: Room #: 240-P ADM IN M.R.#: [id number] Admission: 06/24/19 Attend Phys: Simon Schofield MD Discharge: Date of : 46 Report #: [id number] THIS REPORT FOR: cc: NABIL - Family physician unknown FAM - Family physician unknown Arben Velasco MD [facility] ~ THIS REPORT FOR: //name// [facility] Test Date: 2019-06-27 Test Time: 08:05:22 Pat Name: September Department: Room: 240 P Gender: F Quick Mixer Operator: TARYN : 1950 Requested By: Sha Irving Order Number: [id number] MD: Arben Velasco Measurements Intervals [place] Rate: 74 P: 56 TN: 168 QRS: 192 QRSD: 122 T: 18 QT: 441 QTc: 490 Interpretive Statements Sinus rhythm Poor R wave progression Nonspecific intraventricular conduction delay Nonspecific ST and T wave abnormality Compared to ECG 06/24/2019 12:16:01 No significant change was found Electronically Signed On 06-27-2019 9:25:30 CDT by Arben Velasco [email or web address] <ELECTRONICALLY SIGNED> By: Arben Velasco MD, [facility] 06/27/1925 4 4 Arben Velasco MD, [facility] /EPI
[2019-06-27 14:07] LABS: HEMOGLOBIN 10.3 g/dL (11.1-15.9)
--- NOTE | 2019-06-27 15:41 | NUR ---
PATIENT TOLERATED DIALYSIS WELL. YELLS OUT AT TIME. PATIENT'S SON CALLED THIS AFTERNOON AND WAS UPDATED. WILL CONTINUE WITH POC.
--- NOTE | 2019-06-27 16:20 | NUR ---
LAB CALLED REGARDING COVID RESULTS, MESSAGE SENT TO DR. CHAVEZ VIA [employer] TEXT.
--- NOTE | 2019-06-27 17:58 | NUR ---
ORDERS RECEIVED TO TRANSFER TO [facility], REPORT CALLED TO CARRILLO AND PATIENT MOVED TO RM 213 WITH BELONGINGS INCLUDING CELL PHONE. NUSRAT TORRES NOTIFIED OF TRANSFER OVER THE PHONE AND NEW PHONE NUMBER GIVEN.
--- NOTE | 2019-06-27 18:48 | NUR ---
PT ARRIVED AT 1800 FROM ICU, WENT TO 213, WAS MOVED TO 217 ACROSS FROM NURSES STATION FOR HER SAFETY. CALLED HER SON, BRIAN, TO LET HIM KNOW WHICH ROOM SHE MOVED TO. ASSESSED, VSS, PT IN BED, CALL LIGHT ON LAP, PHONE ALSO IN BED WITH PT, DOOR OPEN SO PT IS VISUALIZED, WILL MONITOR.
--- NOTE | 2019-06-28 03:44 | NUR ---
PT ALERT AND ORIENTED. VSS. DENIES PAIN. DENIES CHEST PAIN, NAUSEA AND VOMITING. O2 SATS STABLE ON 3L NC. NO EVENTS OVERNIGHT. POC FOLLOWED. ALL ASSESSMENTS DOCUMENTED. WILL CONTINUE TO MONITOR.
[2019-06-28 03:51] VITALS: BP 122/51
[2019-06-28 07:00] VITALS: BP 146/45
--- NOTE | 2019-06-28 08:15 | 2DMMODE ---
[facility] [place] [address] 2 D/M-MODE ECHOCARDIOGRAM Name: IDALMIS Room #: 217-P ADM IN M.R.#: [id number] Admission: 06/24/19 Attend Phys: Simon Schofield MD Discharge: Date of : 46 Report #: [id number] THIS REPORT FOR: cc: FAM - Family physician unknown FAM - Family physician unknown Arben Velasco MD [facility] ~ APPROVED REPORT Study performed: 06/28/2019 07:17:39 EXAM: Comprehensive 2D, Doppler, and color-flow Echocardiogram Patient Location: Bedside Room #: 217 Status: routine BSA: 1.56 HR: 70 bpm BP: 122/51 mmHg Rhythm: NSR/arrhythmia Other Information Study Quality: Good Indications Short of breath, elevated troponin. Hx: CAD, CABG, COPD, ESRD, PVD, HTN, HLP, DM. 2D Dimensions RVDd: 48.06 mm IVSd: 10.00 (7-11mm) LVOT Diam: 19.52 (18-24mm) LVDd: 59.00 mm PWd: 10.39 (7-11mm) Ascending Ao: 29.11 (22-36mm) LVDs: 40.78 (25-40mm) Aortic Root: 32.85 mm Volumes Left Atrial Volume (Systole) Single Plane 4CH: 76.81 mL Single Plane 2CH: 75.41 mL LA ESV Index: 54.00 mL/m2 Aortic Valve AoV Peak Shine.: 2.71 m/s AO Peak Gr.: 29.27 mmHg LVOT Max P.37 mmHg AO Mean Gr.: 16.92 mmHg AO V2 Mean: 1.97 m/s LVOT Max V: 1.16 m/s [facility] [place] [address] [place] [address] 2 D/M-MODE [facility]OCARDIOGRAM [facility] #: [facility]- ADM IN .R.#: [id number] Admission: 06/24/19 Attend Phys: Simon Schofield MD Discharge: Date of : 46 Report #: [id number] AO V2 VTI: 68.68 cm DOTTIE Vmax: 1.28 cm2 Mitral Valve E/A Ratio: 2.0 MV Decel. Time: 155.79 ms MV E Max Shine.: 1.59 m/s MV A Shine.: 0.80 m/s MV PHT: 45.18 ms IVRT: 73.82 ms Pulmonary Valve PV Peak Shine.: 1.24 m/s PV Peak Gr.: 6.18 mmHg Tricuspid Valve TR Peak Shine.: 3.46 m/s RAP Estimate: 15.00 mmHg TR Peak Gr.: 48.00 mmHg PA Pressure: 63.00 mmHg Left Ventricle The left ventricle is normal size. There is normal LV segmental wall motion. There is normal left ventricular wall thickness. Left ventricular systolic function is low normal. LVEF is 50%. The diastolic function is abnormal. Right Ventricle Right ventricle is moderately dilated. Right ventricle is mildly hypokinetic. Atria Left atrium is severely dilated. The atrial septum is aneurysmal. Right atrium is moderately dilated. Aortic Valve Aortic valve is moderately calcified. No aortic regurgitation is present. There is mild to moderate valvular aortic stenosis. Calculated aortic valve area is 1.3 cm2 with maximum pressure gradient of 29 mmHg and mean pressure gradient of 17 mmHg. Mitral Valve Moderate mitral annular calcification. Moderate mitral regurgitation. Mild mitral stenosis. Peak pressure gradient of 12 mmHg and mean pressure gradient of 4.7 mmHg. Tricuspid Valve The tricuspid valve is normal in structure. Moderate to severe [facility] [address] [place] [address] 2 D/M-MODE ECHOCARDIOGRAM Name: [facility] Room #: [address] [place] [address] IN M.R.#: [id number] Admission: 06/24/19 Attend Phys: Simon Schofield MD Discharge: Date of : 46 Report #: [id number] tricuspid regurgitation. Estimated PAP is 60 mmHg. Pulmonic Valve The pulmonary valve is normal in structure. Moderate pulmonic regurgitation. Great Vessels The aortic root is normal in size. The ascending aorta is normal in size. IVC is dilated and collapses <50% with inspiration. Pericardium There is no pericardial effusion. <Conclusion> Left ventricular systolic function is low normal. LVEF is 50%. Right ventricle is moderately dilated. Both atria are dilated. Atrial septum is aneurysmal. Aortic valve is moderately calcified; mild to moderate valvular aortic stenosis, no insufficiency. Calculated aortic valve area is 1.3 cm2 with maximum pressure gradient of 29 mmHg and mean pressure gradient of 17 mmHg. Moderate mitral annular calcification. Moderate mitral regurgitation. Mild mitral stenosis. Peak pressure gradient of 12 mmHg and mean pressure gradient of 4.7 mmHg. Moderate to severe tricuspid regurgitation. Estimated pulmonary artery pressure of 60 mmHg. There is no pericardial effusion. <ELECTRONICALLY SIGNED> By: Arben Velasco MD, FACC 06/28/19813 3 3 Arben Velasco MD, FACC /INF
[2019-06-28] MEDS ORDERED: AZITHROMYCIN 2250 MG PO (10:23)
[2019-06-28] MEDS ORDERED: TAMIFLU30 MG PO (10:23)
[2019-06-28] MEDS ORDERED: CEFDINIR300 MG PO (10:23)
[2019-06-28 11:30] VITALS: BP 113/41
--- NOTE | 2019-06-28 13:48 | NUR ---
Patient to dc to [facility]. Notfied dtr MS Rosales, dtr, of discharge. van for 1500 notfied rn. Alerted day camp unit leader for chart copy. faxed orders and confimed receipt. sp with admissions at [facility].
--- NOTE | 2019-06-28 16:02 | NUR ---
notified dialysis clinic of md today. so dali Berg.
--- NOTE | 2019-06-28 17:15 | NUR ---
ASSUMED CARE OF PT AT APPROX 1300 FROM [facility]. ASSESSMENTS CHARTED. MEDS GIVEN PER MAR. PT A&OX4, A BIT FORGETFUL. NO C/O PAIN FOR SOA. PT ON 3L NC. DISCHARGE ORDERS COMPLETE. PT WAITED PATIENTLY FOR DISCHARGE TRANSPORT WHILE READING A BOOK. IV FELL OUT EARLIER, TELE REMOVED. WC VAN TRANSPORTED TO FACILTY.
[2019-06-30 00:06] LABS: GLUCOSE 6-P-D 12.6 U/g Hb (4.6-13.5)
--- NOTE | 2019-07-01 07:23 | HC ---
[facility] [place] [address] CONSULTATION Name: Room #: 217-P [facility] IN M.R.#: [id number] Admission: 06/24/19 Attend Phys: Simon Schofield MD Discharge: 06/28/19 Date of : 46 Report #: [id number] THIS REPORT FOR: cc: NABIL - Family physician unknown NAIBL - Family physician unknown Sophia Rock MD ~ CC: NABIL unknown Simon Schofield REASON FOR CONSULTATION: End-stage renal disease. REASON FOR PRESENTATION: Shortness of breath and cough. HISTORY OF PRESENT ILLNESS: This is a very well-known patient to me. She is a 69-year-old with past medical history of end-stage renal disease, maintained on hemodialysis every Monday, and Monday. She has had multiple hospitalizations at our facility including and not limited to an episode of GI bleeding with no apparent source found. She has major noncompliance issues and has had major issues with pulmonary edema in the past. She reports to the Emergency Room having some issues with cough and shortness of breath and was found to have what was described on the chest x-ray as marked cardiomegaly with some improvement in her pulmonary venous congestion. I was consulted to manage her end-stage renal disease. PAST MEDICAL HISTORY: 1. End-stage renal disease, maintained on hemodialysis every Monday, and Monday. 2. Diabetes mellitus. 3. CABG. 4. Chronic obstructive pulmonary disease. 5. Hypertension. 6. Anemia. 7. GERD. PAST SURGICAL HISTORY: 1. Cholecystectomy. 2. Tonsillectomy. 3. Tubal ligation. 4. Right below-knee amputation. SOCIAL HISTORY: She resides in the nursing facility of the [facility]. She used to be a heavy smoker. REVIEW OF SYSTEMS: GENERAL: Significant for weakness. CARDIOVASCULAR: Significant for shortness of breath. PULMONARY: Significant for cough and shortness of breath. [facility] [address] [place] [address] CONSULTATION Name: Room #: 217-P [facility] IN [facility].#: [id number] Admission: 06/24/19 Attend Phys: Simon Schofield MD Discharge: 06/28/19 Date of : 46 Report #: [id number] GASTROINTESTINAL: No nausea or vomiting. MUSCULOSKELETAL: Occasional back pain. ALLERGIES: CONTRAST AND LATEX. MEDICATIONS: 1. Midodrine. 2. Plavix. 3. Carvedilol. 4. Omeprazole. 5. Insulin lispro. 6. Sevelamer carbonate. 7. Ergocalciferol. PHYSICAL EXAMINATION: VITAL SIGNS: Blood pressure is 144/56, temperature 35.8, pulse rate is 69. HEAD AND NECK: No jugular venous distention. CHEST: Minimal bibasilar crackles. CARDIOVASCULAR: No rub detected. ABDOMEN: Soft. LOWER EXTREMITIES: Right below-knee amputation. Extensive left side edema. LABORATORY DATA: Sodium 130, potassium 6.17, BUN 73, creatinine is 5.5, phosphorus 7.5, magnesium is 2.6. ASSESSMENT: 1. End-stage renal disease. 2. Hyperkalemia. PLAN: 1. We will arrange for the patient to have the usual hemodialysis today. 2. Management of her chronic obstructive pulmonary disease per the primary team. 3. Resume her phosphorus binders. 4. Extreme noncompliance with diet and fluid restriction limiting her overall progress. <ELECTRONICALLY SIGNED> By: Sophia Rock MD 07/01/19 0723 [id number] [id number] Sophia Rock MD /nt
[2019-07-03 14:07] LABS: ADENOVIRUS Negative (Negative); INFLUENZA A Negative (Negative); INFLUENZA B Negative (Negative); METAPNEUMOVIRUS Positive (Negative); PARAINFLUENZA 1 Negative (Negative); PARAINFLUENZA 2 Negative (Negative); PARAINFLUENZA 3 Negative (Negative); RHINOVIRUS Negative (Negative); RSV A Negative (Negative); RSV B Negative (Negative)
== END 2019-06-28 17:00 | DRG 871 ==
LOC: ER 12:10 → 3W 16:12 → ICU 16:13 → 2N 06-27 17:51
PROVIDERS: Emergency Medicine; Internal Medicine; Specialist; ADMIT Internal Medicine
PROC: 5A09357 Assistance with Respiratory Ventilation, Less than 24 Consecutive Hours, Continuous Positive Airway Pressure (ICD-10-PCS; principal; 2019-06-25)
PROC: 5A1D70Z Performance of Urinary Filtration, Intermittent, Less than 6 Hours Per Day (ICD-10-PCS; 2019-06-27)
DX: A41.9 Sepsis, unspecified organism (principal); J11.00 Influenza due to unidentified influenza virus with unspecified type of pneumonia; J96.22 Acute and chronic respiratory failure with hypercapnia; N18.6 End stage renal disease; G92 Toxic encephalopathy; J96.21 Acute and chronic respiratory failure with hypoxia; J44.1 Chronic obstructive pulmonary disease with (acute) exacerbation; J44.0 Chronic obstructive pulmonary disease with (acute) lower respiratory infection; I13.2 Hypertensive heart and chronic kidney disease with heart failure and with stage 5 chronic kidney disease, or end stage renal disease; I25.10 Atherosclerotic heart disease of native coronary artery without angina pectoris; G25.81 Restless legs syndrome; K22.70 Barrett's esophagus without dysplasia; D63.8 Anemia in other chronic diseases classified elsewhere; E87.5 Hyperkalemia; R53.81 Other malaise; E11.51 Type 2 diabetes mellitus with diabetic peripheral angiopathy without gangrene; K21.9 Gastro-esophageal reflux disease without esophagitis; E78.5 Hyperlipidemia, unspecified; F41.9 Anxiety disorder, unspecified; E11.22 Type 2 diabetes mellitus with diabetic chronic kidney disease; I50.9 Heart failure, unspecified; I25.5 Ischemic cardiomyopathy; I35.0 Nonrheumatic aortic (valve) stenosis; I27.29 Other secondary pulmonary hypertension; Z79.4 Long term (current) use of insulin; Z90.49 Acquired absence of other specified parts of digestive tract; Z91.041 Radiographic dye allergy status; Z95.1 Presence of aortocoronary bypass graft; Z98.41 Cataract extraction status, right eye; Z79.899 Other long term (current) drug therapy; I25.2 Old myocardial infarction; Z95.5 Presence of coronary angioplasty implant and graft; Z91.19 Patient's noncompliance with other medical treatment and regimen; Z91.040 Latex allergy status; Z87.891 Personal history of nicotine dependence; Z99.2 Dependence on renal dialysis; Z89.511 Acquired absence of right leg below knee; Z79.02 Long term (current) use of antithrombotics/antiplatelets
CPT/HCPCS: 10078; 10081; 10203; 10879; 32100

== ENCOUNTER 2019-08-12 18:05 | Inpatient (IN) | payer OTHER ==
[~2019-08-12] VITALS: Ht 152.4 cm; Wt 68.0 kg
--- NOTE | ~2019-08-12 | HC ---
[facility] [place] [address] CONSULTATION Name: Room #: 236-P ADM IN M.R.#: [id number] Admission: 08/12/19 Attend Phys: Francisca Arteaga MD Discharge: Date of : 46 Report #: [id number] THIS REPORT FOR: cc: Lucas Morris MD,Lucas Rock,Sophia Rose MD ~ CC: Francisca Morris REASON FOR THE CONSULTATION: End-stage renal disease. HISTORY OF PRESENT ILLNESS: This is a very well known patient to me. This is a 69-year-old with history of end-stage renal disease, extreme noncompliance with fluid and salt restriction. She is on dialysis at a [facility]. She is telling me that she had her catheter exchanged yesterday. Her oxygen saturation has dropped. She continued to be hypoxic and she was brought for further evaluation and treatment. She was found to have hyperkalemia. She was on 2 liters by nasal cannula when I evaluated the patient. She did have a pH of 7.1 with a serum potassium of 7.6 and a carbon dioxide of 19. She is being ruled out for coronavirus. Chest x-ray was consistent with pulmonary edema. PAST MEDICAL HISTORY: Extensive and includes the followin. Coronary artery disease. 2. End-stage renal disease, maintained on hemodialysis. 3. Extreme noncompliance with fluid and salt restrictions. 4. Peripheral vascular disease post-amputation. MEDICATIONS: 1. Plavix. 2. Gabapentin. 3. Atorvastatin. 4. Sevelamer. ALLERGIES: LATEX. REVIEW OF SYSTEMS: GENERAL: No fever or chills. CARDIOVASCULAR: As per the history of present illness. PULMONARY: As per the history of present illness. GASTROINTESTINAL: No nausea or vomiting. MUSCULOSKELETAL: No back pain, no joint pain. SKIN: No rash or ulcerations. NEUROLOGICAL: No headache, no dizziness. FAMILY HISTORY: From prior admissions delineate that the patient's family history is significant for hypertension. [facility] [address] [place] [address] CON[facility] Room #: 236-P ADM IN M.R.#: [id number] Admission: 08/12/19 Attend Phys: Francisca Arteaga MD Discharge: Date of : 48 Report #: [id number] PHYSICAL EXAMINATION: GENERAL: She is awake, alert, oriented. VITAL SIGNS: Blood pressure was 176/71. HEAD AND NECK: No jugular venous distention. CHEST: Crackles bilaterally with wheeze. CARDIOVASCULAR: No rub detected. ABDOMEN: Soft, nontender. EXTREMITIES: Lower extremities, +1 edema. LABORATORY VALUES: Sodium 131, potassium 7.5, chloride 99, carbon dioxide 19, BUN is 95, creatinine 7.4. Chest x-ray consistent with pulmonary edema. ASSESSMENT, IMPRESSION, PLAN: 1. End-stage renal disease. 2. Hyperkalemia. 3. Pulmonary edema. 4. Extreme noncompliance with fluid and salt restrictions. 5. Emergent dialysis will be arranged for the patient today. She already received appropriate treatment for hyperkalemia. 6. She is being ruled out for coronavirus infection. 7. Continue to licensed professional counselor about compliance. By: 0612 [id number] Sophia Rock MD /nt
[~2019-08-12 18:05] MED LIST changes: +ALPRAZOLAM XR3 MG PO; +AZITHROMYCIN 2250 MG PO; +CEFDINIR300 MG PO; +RENVELA0.8 GM PO; +TAMIFLU30 MG PO
[2019-08-12 18:19] VITALS: BP 176/71
[2019-08-12] MEDS ORDERED: HYDRALAZINE 2525 MG PO (18:51)
[2019-08-12] MEDS ORDERED: HUMULIN R100 UNIT/1 SUBLING (18:53)
[2019-08-12 19:02] LABS: BE(vivo) -14.1 mmol/L (-2 to +3); PCO2 40.5 mmHg (35.0-45.0); PO2 123.8 mmHg (80.0-100.0); sO2 97.5 % (92.0-98.0)
[2019-08-12 19:03] LABS: pH 7.156 (7.360-7.450)
[2019-08-12 19:54] LABS: HEMATOCRIT 42.6 % (37.0-47.0); HEMOGLOBIN 13.1 gm/dL (12.0-15.0); MCH 28.9 pg (26.0-34.0); MCHC 30.8 g/dL (28.0-37.0); MCV 93.9 fL (80.0-100.0); PLATELET COUNT 217 thou/uL (150-400); RBC 4.54 mil/uL (4.20-5.00); RDW 18.6 % (10.5-14.5); WBC 5.5 thou/uL (4.0-11.0)
[2019-08-12 20:04] LABS: ANION GAP 13 mmol/L (7-16); BUN 95 mg/dL (7-18); CALCIUM 8.6 mg/dL (8.5-10.1); CHLORIDE 99 mmol/L (98-107); CO2 19 mmol/L (21-32); CREATININE 7.4 mg/dL (0.6-1.0); GLUCOSE 298 mg/dL (74-106); SODIUM 131 mmol/L (136-145); TROPONIN-I <0.06 ng/mL (<0.06)
[2019-08-12 20:05] LABS: POTASSIUM 7.5 mmol/L (3.5-5.1)
[2019-08-12 20:24] LABS: ABSOLUTE NEUTROPHILS 5.3 thou/uL (1.4-8.2)
[2019-08-12 20:25] LABS: ANISOCYTOSIS 2+; PLATELET ESTIMATE NORMAL; POIKILOCYTOSIS 1+
--- NOTE | 2019-08-12 20:30 | NUR ---
GEETHA MACK CALLED FOR UPDATE ON PATIENT STATUS AND WAS INFORMED PT WILL BE ADMITTED TO THE HOSPITAL
[2019-08-12 20:52] LABS: BE(vivo) -13.1 mmol/L (-2 to +3); HCO3 14.4 mmol/L (22.0-26.0); PCO2 38.8 mmHg (35.0-45.0); PO2 69.9 mmHg (80.0-100.0)
[2019-08-12 20:54] LABS: pH 7.188 (7.360-7.450)
--- NOTE | 2019-08-12 23:06 | NUR ---
GORDON LOPEZ IN DEPARTMENT TRYING TO RECONCILING DISCREPENCIES IN MEDICATION LISTS REPORTED
[2019-08-13] VITALS (27 sets, daily range): BP systolic 119–147; BP diastolic 20–54
--- NOTE | 2019-08-13 08:02 | NUR ---
RECEIVED PT FROM ER. PT A/O -STATES BREATHING IS "FINE", RR 28. LS-SCATTERED WHEEZES. 02SAT 97 ON 2LNC. NO PRODUCTIVE COUGH NOTED. AFEBRILE. MONITOR SHOWS SR WITH BBB, PEAKED T WAVES. POTASSIUM AT CRITICAL LEVEL. HYPERKALEMIA PROTOCOLS ORDERED. AFTER ONE SIP PT REFUSED TO DRINK KYXELATE. STATES SHE IS HAVING LOOSE STOOLS. INSULIN, CALCIUM GLUCANATE, AND HIGH DOSE ALBUTEROL HAVE BEEN GIVEN. RECHECK OF LABS PENDING. DR KLEIN HERE THIS AM. DIALYSIS ORDERED FOR TODAY. PT SLEEPING, AWAKENS EASILY. MAINTAINING 02SAT AT 97%. MORE COOPERATIVE WITH CARE THIS AM. COVID SWAB PENDING. ENHANCED PRECAUTIONS FOLLOWED. SEE [facility] FOR ASSESSMENT. ATTEMPT TO CALL PT DAUGHTER/DPOA- NUMBER ON FILE RINGS BUSY.
--- NOTE | 2019-08-13 08:07 | EKG ---
[facility] [place] [address] ELECTROCARDIOGRAM REPORT Name: IDALMIS Room #: 236-P ADM IN M.R.#: [id number] Admission: 08/12/19 Attend Phys: Francisca Arteaga MD Discharge: Date of : 48 Report #: [id number] THIS REPORT FOR: cc: Lucas Morris MD, Srinath MD Lundgren,Arben Greenberg MD [facility] ~ THIS REPORT FOR: //name// [facility] ED Test Date: 2019-08-12 Test Time: 18:57:52 Pat Name: September Department: Room: [facility] Gender: F Brick Catcher: LIZ : 1950 Requested By: Denny Mar Order Number: [id number] MD: Arben Velasco Measurements Intervals [place] Rate: 64 P: 38 [place]: 209 QRS: 245 QRSD: 144 T: 57 QT: 465 QTc: 480 Interpretive Statements Sinus rhythm Nonspecific IVCD with LAD Compared to ECG 06/27/2019 08:05:22 No significant change was found Electronically Signed On 08-13-2019 8:05:37 CDT by Arben Velasco [email or web address] <ELECTRONICALLY SIGNED> By: Arben Velasco MD, [facility] 08/13/19 0805 56 56 Arben Velasco MD, [facility] /EPI
[2019-08-13 10:19] LABS: CALCIUM 8.7 mg/dL (8.5-10.1); CREATININE 7.8 mg/dL (0.6-1.0)
[2019-08-13 10:22] LABS: POTASSIUM 7.8 mmol/L (3.5-5.1)
--- NOTE | 2019-08-13 16:00 | NUR ---
PATIENT ON 2L NC, REMOVES OWN OXYGEN INTERMITTENTLY. O2 SATS 95-96% ON 2L, 90% ON ROOM AIR. FORGETFUL AND NEEDS FREQUENT REMINDERS. DIALYZED THIS SHIFT USING CATH. DRESSING APPLIED BY DIALYSIS PERSONNEL, C/D/I THIS SHIFT. 4L REMOVED VIA DIALYSIS. ANURIC. LABS REDRAWN. COVID RESULTS NEGATIVE, REMOVED FROM PRECAUTIONS PER INFECTIOUS DISEASE. AFEBRILE. DENIES PAIN. EDUCATED ON NUTRITION AND DISEASE PROCESS. PATIENT TEARFUL STATES THAT HER FACILITY DOES NOT FEED HER WHAT SHE IS SUPPOSED TO HAVE AND DOES NOT MONITOR HER FLUID INTAKE. FALL PRECAUTIONS IN PLACE, NOT IMPULSIVE. PATIENT REQUESTS FREQUENTLY TO DISCHARGE HOME. SPOKE WITH DAUGHTER THIS AFTERNOON REGARDING UPDATE ON PATIENT'S CONDITION. PATIENT PROVIDED WITH PHONE IN HER ROOM TO COMMUNICATE WITH FAMILY. EDUCATED ON USE OF PHONE AND CALL LIGHT. PATIENT PROGRESSING TOWARDS GOALS FOR DISCHARGE.
[2019-08-13 16:13] LABS: ALBUMIN 3.6 g/dL (3.4-5.0); CALCIUM 8.3 mg/dL (8.5-10.1); POTASSIUM 4.6 mmol/L (3.5-5.1); TOTAL BILIRUBIN 0.5 mg/dL (<0.1-1.0); TOTAL PROTEIN 6.4 g/dL (6.4-8.2)
[2019-08-13 16:14] LABS: CREATININE 3.9 mg/dL (0.6-1.0)
--- NOTE | 2019-08-13 16:50 | NUR ---
INITIAL ASSESSMENT: Received nursing referral. VALERIANO reviewed chart and spoke with attending physician. Pt was admitted from [facility] due pulmonary eduma/acute on chronic respiratory failure. Pt with hx of ESRD and does outpatient dialysis at [facility]. Pt had dialysis catheter replaced yesterday. Pt is in Enhanced Isolation to r/o COVID-19. Pt's test did come back negative. Pt is afebrile. On 2.5 L of O2 and IV steroids. Pulm/renal consulted. Pt to have dialysis today. VALERIANO spoke with pt's dtrLeida, via phone. Introduced role of VALERIANO. 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 Pt is w/c bound. Pt with hx right BKA. Pt goes to dialysis T-R-S at 0630. Plan is for pt to return to [facility] when medically stable. menu planner to fax clinical info to [facility] for review. VALERIANO spoke with Arben at [facility] to notify of pt's admission and provide update. VALERIANO is following to assist as needed with discharge planning.
--- NOTE | 2019-08-13 16:51 | NUR ---
PT FROM [facility] FAXED CLINICAL UPDATE TO FACILITY RECEIVED CONFIRMATION AND LEFT MSG WITH TERESA. DP TO FOLLOW.
--- NOTE | 2019-08-13 19:28 | NUR ---
CALLED [facility] TO UPDATE ON TRANSFER TP 4W. PHONE BUSY UNABLE TO LEAVE . WILL CALL AGAIN LATER
--- NOTE | 2019-08-14 05:28 | NUR ---
ASSUMED PT CARE AROUND 1930. AXOX3 WITH INTERMITTENT CONFUSION AND SOME IMPULSIVITY. TEARFUL AND APPREHENSIVE. MED FOR ANXIETY GIVEN WITHOUT RELIEF AND PT STARTED C/O NECK PAIN WHERE DIALYSIS CATHETER WAS RECENTLY PLACED. PAIN MEDS ORDERED PER HIMS AND GIVEN. PT VERBALIZED RELIEF OF PAIN. DR TYSON ROUDED THIS AM AROUND 0500. REPORTED PT'S PAIN. MD SAID CATHETER IS INTACT AND OK TO USE. MD IS OK WITH PT DISCHARGING AFTER HD TODAY. WILL RELAY TO INCOMING RN. WILL CONT TO MONITOR FOR ANY CHANGES IN CONDITION,
[2019-08-14 05:47] LABS: HEMATOCRIT 37.2 % (37.0-47.0); HEMOGLOBIN 11.8 gm/dL (12.0-15.0); MCH 29.4 pg (26.0-34.0); MCHC 31.7 g/dL (28.0-37.0); MCV 92.6 fL (80.0-100.0); RBC 4.02 mil/uL (4.20-5.00); RDW 17.8 % (10.5-14.5); WBC 5.9 thou/uL (4.0-11.0)
[2019-08-14 06:06] LABS: ALBUMIN 3.6 g/dL (3.4-5.0); CALCIUM 8.4 mg/dL (8.5-10.1); PHOSPHORUS 6.1 mg/dL (2.5-4.9); POTASSIUM 5.3 mmol/L (3.5-5.1)
[2019-08-14 09:15] VITALS: BP 117/45
--- NOTE | 2019-08-14 14:10 | NUR ---
PT DISCHARGING TODAY TO [facility] FAXED DC ORDERS/SUMMARY TO FACILITY SPOKE WITH TERESA IN ADM SHE RECEIVED ORDERS AND ARRANGED TRANSPORT FOR 1530 BY VAN NOTIFIED PT'S DTR (PJ) OF DC AND TIME OF TRANSPORT. UNIT NOTIFIED AND CHART COPY PER US. RN TO CALL REPORT TO [phone].
[2019-08-14 15:09] LABS: HEP B SURFACE Ab(ANTI-HBS Non Reactive (()); HEPATITIS B SURFACE AG Negative (Negative)
--- NOTE | 2019-08-14 15:55 | NUR ---
Assumed pt care this am, had dialysis this am. Blood sugar checks done and insulin given in the am. Refused meal and insulin during lunch. POC followed, no signs or verbalizations of distress. Though pt would remove her oxygen and needed to be reminded often to keep it on d/t low sat rate when off. IV removed, report called out to facility. Pt is now dc.
== END 2019-08-14 17:19 | DRG 291 ==
LOC: ER 18:05 → EROBS 21:03 → 4W 21:03 → ICU 21:03 → EROBS 21:03 → ICU 08-13 02:00 → 4W 08-13 18:45
PROVIDERS: Emergency Medicine; Hospitalist; Nurse Practitioner Family; ADMIT Hospitalist
PROC: 5A1D70Z Performance of Urinary Filtration, Intermittent, Less than 6 Hours Per Day (ICD-10-PCS; principal; 2019-08-14)
DX: I13.2 Hypertensive heart and chronic kidney disease with heart failure and with stage 5 chronic kidney disease, or end stage renal disease (principal); J96.21 Acute and chronic respiratory failure with hypoxia; I50.33 Acute on chronic diastolic (congestive) heart failure; N18.6 End stage renal disease; J81.1 Chronic pulmonary edema; I25.810 Atherosclerosis of coronary artery bypass graft(s) without angina pectoris; E87.2 Acidosis; J44.9 Chronic obstructive pulmonary disease, unspecified; G25.81 Restless legs syndrome; K21.9 Gastro-esophageal reflux disease without esophagitis; E87.5 Hyperkalemia; E11.22 Type 2 diabetes mellitus with diabetic chronic kidney disease; E11.40 Type 2 diabetes mellitus with diabetic neuropathy, unspecified; E11.51 Type 2 diabetes mellitus with diabetic peripheral angiopathy without gangrene; E78.5 Hyperlipidemia, unspecified; K22.70 Barrett's esophagus without dysplasia; Z20.828 Contact with and (suspected) exposure to other viral communicable diseases; I25.2 Old myocardial infarction; Z99.2 Dependence on renal dialysis; Z95.1 Presence of aortocoronary bypass graft; Z98.41 Cataract extraction status, right eye; Z90.49 Acquired absence of other specified parts of digestive tract; Z79.899 Other long term (current) drug therapy; Z79.4 Long term (current) use of insulin; Z91.041 Radiographic dye allergy status; Z91.040 Latex allergy status; Z87.891 Personal history of nicotine dependence; Z91.11 Patient's noncompliance with dietary regimen; Z89.511 Acquired absence of right leg below knee
CPT/HCPCS: 10047; 32100

== ENCOUNTER 2019-09-10 10:17 | Inpatient (IN) | payer OTHER ==
[~2019-09-10] VITALS: Ht 162.6 cm; Wt 56.3 kg
[2019-09-10] VITALS (9 sets, daily range): BP systolic 96–138; BP diastolic 48–76
--- NOTE | ~2019-09-10 | EMS ---
[facility] [address] [place] [address] EMS Patient Care Report Name: BARRY GRANADOS Room #: 219-P ADM IN M.R.#: [id number] Admission: 09/10/19 Attend Phys: Francisca Arteaga MD Discharge: Date of : 48 Report #: [id number] THIS REPORT FOR: //name// Report Transmitted: 09/10/2019 17:07 EMS Care Summary [facility] MED-ACT Incident [id number] @ 09/10/2019 09:38 Incident Location [address] [place] [id number] Patient September Female, 69 Years 1950 Patient Address [address] [place] [address] Patient History Diabetes,Hypertension (HTN),End Stage Renal Disease (ESRD),Anxiety,Anemia,Chronic Kidney Disease, Patient Allergies No known allergies, Patient Medications Acetaminophen, Carvedilol, Alprazolam, Diphenhydramine, Hydralazine, Insulin, Nitroglycerin, Gabapentin, Omeprazole, Colace, Chief Complaint Chest pain Disposition Transported No Lights/[place] Dispatch Reason Chest Pain (Non-Traumatic) Transported To [facility] [address] [place] [address] EMS Patient Care Report Name: Room #: 219-P ADM IN Holly#: [id number] Admission: 09/10/19 Attend Phys: Francisca Arteaga MD Discharge: Date of : 48 Report #: [id number] dispatched to above address for Chest pain, Code 1 response. Upon arrival we found a 69 year old female sitting in the dialysis chair. She was about an hour into dialysis when she had a sudden onset of sharp chest pain on the left side of her chest just below her dialysis cath. She stated the pain went into her jaw and her left arm. She has a history of atrial fib. Pt requested Nitro for pain but her blood pressure did not support administering Nitro. Pt was very anxious. Assessment, vitals, 4-lead, 12-lead, pt stood with assistance and sat on stretcher, loaded in ambulance. IV-20g inserted in right FA, 10mL saline flush. BGL. Vitals and 4-lead monitored throughout transport. Pt remained anxious, stating "I'm going to " and "my arm is going to fall off". Pt transported to [facility]. She arrived alert with stable vitals. Care transferred to [facility] in room 8. Initial Vitals @09:57P: 132,R: 26,BP: 87/39,Glucose: 207,SpO2: 94, @09:58P: 127,R: 26,BP: 84/54,SpO2: 97, @10:02P: 128,R: 24,BP: 89/51,Pain: 9/10,GCS: 15,SpO2: 96,Revised Trauma: 11, @09:52P: 112,R: 24,SD Suspected: false @09:48P: 148,R: 21,Pain: 9/10,GCS: 15,SpO2: 100,SD Suspected: false Assessments @09:48MENTAL:No Abnormalities,SKIN:HEENT:Head/Face: No Abnormalities,Eyes: No Abnormalities,Neck/Airway: No Abnormalities,LUNG SOUNDS:General: Nausea,ABDOMEN:General: Nausea,PELVIS//GI:No Abnormalities,EXTREMITIES:Left Arm: No Abnormalities,Right Arm: No Abnormalities,Left Leg: No Abnormalities,Right Leg: No Abnormalities,PULSE:NEURO:No Abnormalities, Impression Chest Pain / Discomfort Procedures @09:58Saline Lock 10cc (20 ga) Site: Forearm-RightResponse: UnchangedSucceeded@09:4812-Lead ECGResponse: UnchangedSucceeded Timeline 09:36,Call Received 09:36,Psap Call 09:38,Dispatched 09:39,En Route 09:44,On Scene 09:46,At Patient 09:48,12-Lead ECG,Response: UnchangedSucceeded, 09:48,BP: / M,PULSE: 148,RR: 21 R,SPO2: 100 Ox,ETCO2: ,BG: ,PAIN: 9,GCS: 15, [facility] [address] [place] [address] EMS Patient Care Report Name: Room #: 219-P ADM IN M.R.#: [id number] Admission: 09/10/19 Attend Phys: Francisca Arteaga MD Discharge: Date of : 46 Report #: [id number] 09:52,BP: / M,PULSE: 112,RR: 24 R,SPO2: Ox,ETCO2: ,BG: ,PAIN: ,GCS: , 09:57,BP: 87/39 M,PULSE: 132,RR: 26 R,SPO2: 94 Ox,ETCO2: ,B,PAIN: ,GCS: , 09:58,Saline Lock 10cc 20 ga Site: Forearm-Right,Response: UnchangedSucceeded, 09:58,BP: 84/54 M,PULSE: 127,RR: 26 R,SPO2: 97 Ox,ETCO2: ,BG: ,PAIN: ,GCS: , 10:02,BP: 89/51 M,PULSE: 128,RR: 24 R,SPO2: 96 Ox,ETCO2: ,BG: ,PAIN: 9,GCS: 15, 10:03,Depart Scene 10:10,At Destination 10:31,Call Closed Disclaimer v1.1 Copyright 2020 [employer] This EMS Care Summary contains data elements from the applicable legal record (which may be displayed differently). It is designed to provide pertinent information for the following purposes: continuity of care, clinical quality, and state data reporting. The complete legal record is available to ED staff and administrators of the receiving hospital in [employer]'s Patient Tracker. All data is provided "as is."
[~2019-09-10 10:17] MED LIST changes: +HUMULIN R100 UNIT/1 SUBLING
[2019-09-10 10:41] LABS: HEMATOCRIT 38.8 % (37.0-47.0); HEMOGLOBIN 12.6 gm/dL (12.0-15.0); MCH 29.5 pg (26.0-34.0); MCHC 32.4 g/dL (28.0-37.0); MCV 91.2 fL (80.0-100.0); PLATELET COUNT 233 thou/uL (150-400); RBC 4.25 mil/uL (4.20-5.00); RDW 17.5 % (10.5-14.5); WBC 6.2 thou/uL (4.0-11.0)
[2019-09-10 10:53] LABS: CALCIUM 9.3 mg/dL (8.5-10.1); CREATININE 2.8 mg/dL (0.6-1.0); POTASSIUM 3.4 mmol/L (3.5-5.1)
[2019-09-10 11:02] LABS: TROPONIN-I 10.99 ng/mL (<0.06)
[2019-09-10 12:25] LABS: ABSOLUTE NEUTROPHILS 4.7 thou/uL (1.4-8.2); PLATELET ESTIMATE NORMAL
--- NOTE | 2019-09-10 13:04 | NUR ---
ANGIIOMAX TURNED OFF
--- NOTE | 2019-09-10 16:16 | CATHLAB ---
[facility] [address] [place] [address] INVASIVE PROCEDURE REPORT Name: Room #: 150-8 ADM IN M.R.#: [id number] Admission: 09/10/19 Attend Phys: Francisca Arteaga MD Discharge: Date of : 48 Report #: [id number] THIS REPORT FOR: cc: Lucas Morris MD, Srinath MD Park, Jin S. MD ~ APPROVED REPORT Study performed: 09/10/2019 10:45:33 Patient Details Patient Status: ED Room #: The patient is a 69 year-old female Event Personnel Pedro Sánchez Basket Assembler, Asuncion Hernandez RTR, WATER CHASER Monitor, Belinda Dorman RTR Monitor, Can Loja RN, Nona Samayoa RTR Scrub Procedures Performed Art Access - R femoral artery* Left Heart Cath Coronaries, Bypass Grafts 6003242 LHCCORCABG 92763 Initial Mod Sed Same Phys/QHP Gr5y 196116 83709 Mod Sed Same Phys/QHP Ea 602643 PARRIS Revasc AMI Total/Sub Single RAMUS It C9606 AMIREVSING Indication STEMI (>0 to less than or equal to 6 hours), Dyspnea, Chest pain Risk Factors Family HistoryPeripheral Vascular Disease, HypercholesterolemiaPhysical Activity, Coronary Artery DiseaseHypertension, Diabetes , Dialysis Previous Procedures/Diagnoses Previous CABGPrevious PCI, Previous Femoral Procedure, Previous MIPrevious Vascular Surgery Procedure Narrative The Right Groin^ was infiltrated with 1% Lidocaine subcutaneous anesthesia. A PINNACLE 6FR Sheath #[id number] sheath was inserted into the RFA^. Coronary angiography was performed using coronary diagnostic catheters. The right coronary system was accessed and visualized with a JR4 catheter. The left coronary system was accessed [facility] [address] [place] [address] INVASIVE PROCEDURE REPORT Name[facility] Room #: 150-8 ADM IN ..#: [id number] Admission: 09/10/19 Attend Phys: Ian Davis Discharge: Date of : 48 Report #: [id number] and visualized with a Jl4 catheter. The left ventricle was accessed and visualized with a angled pigtail catheter. Left ventricular/Aortic Valve gradient assessed via catheter pullback. Left ventriculogram was performed in 30 degree projection. Sheath was sutured in place and was pulled later. Intraoperative Conscious Sedation Sedation start time: 10:57 Case end Time: 12:19 Fentanyl 100 mcg Versed 1.5 mg Fluoro Time: 19.13 minutes Dose: DAP 80342.30 cGycm2 2001 mGy Contrast Type and Amount: Visipaque 275 ml Coronary Angiography The patient's coronary anatomy is right dominant. Diagnostic Cath LAD There is a total occlusion of the proximal LAD. There is a patent COULTER graft with a end-to-side anastomosis to the mid LAD. Diagonal 1 Appears to be obstructed, partially filled via collateral circulation. Circumflex Supplies 1 OM vessel, no flow-limiting lesions. OM1 This is a small caliber vessel with a moderate ostial stenosis. Right Coronary This is a dominant vessel with multiple overlapping stents in the proximal and mid segments. There is a moderate restenosis in the midsegment, 50%. R PDA There is a severe occlusion in the ostium, 70%. RPLV This is a patent vessel with a moderate stenosis in the proximal segment, 50%. Ramus This is a moderate-sized caliber vessel with multiple stents in the proximal out to the midsegment. There is a total occlusion in the proximal segment. Left Ventriculography The left ventricle is mildly dilated in size with Decreased contractility. The left ventricular ejection fraction is estimated to be 25%. Left ventricular wall motion abnormalities are present. Hemodynamics The aortic pressure is 106/57 mmHg with a mean of 98 mmHg. The left ventricular pressure is 115/19 mmHg with a mean of mmHg. The [facility] [address] [place] [address] INVASIVE PROCEDURE REPORT Name: Room #: 1508 [facility] IN M.R.#: [id number] Admission: 09/10/19 Attend Phys: Ian Davis Discharge: Date of : 48 Report #: [id number] ventricular end diastolic pressure is 30 mmHg. PCI Technique Lesion Percutaneous coronary intervention was performed on the ramus intermedius segment. The lesion stenosis prior to intervention was 100% with EULALIA 0 flow. A VISTA 6FR XB 3.5 #[id number] Guide Catheter was used to engage the ostium. A Luge Wire .014 x 182CM #[id number] Interventional Guidewire was used to cross the lesion. BALLOON DILATION A Balloon catheter Euphora RX 2.5 x 12 #[id number] was inserted and inflated up to 6.00atm for 6seconds. Additional Inflation: 6.00atm for 6seconds. Additional Inflation: 6.00atm for 14seconds. Additional inflation: 6 radha for 7 seconds A second balloon was used, 2.5 x 15 NC Euphora and inflated to 16 radha for 19 seconds in the proximal Ramus. Additional inflation: 16 radha for 14 seconds A third balloon was used, 2.5 x 12 Euphora and inflated to 12 radha for 21 seconds in the mid Ramus. Additional inflation: 12 radha for 13 seconds A fourth balloon was used, 2.5 x 15 NC Euphora and inflated to 16 radha for 20 seconds in the mid Ramus. Additional inflation: 18 radha for 12 seconds STENT DEPLOYMENT A drug-eluting stent XIENCE ARPAN RX 2.25 X 28 #[id number] was inserted and inflated up to 14.00atm for 20seconds. Another drug-eluting stent, 2.75 x 12 Resolute [place] RX was inflated in the proximal-mid Ramus up to 18 radha for 16 seconds. A second drug-eluting stent, 2.75 x 12 Resolute [place] RX was inflated proximal to the first 2.75 x 12 Resolute [place] RX up to 18 radha for 17 seconds. POST STENT DEPLOYMENT BALLOON DILATION A Balloon catheter Euphora NC RX 3.0 x 15 #[id number] was inserted and inflated up to 18.00atm for 23seconds. Additional Inflation: 18.00atm for 29seconds. Final angiography reveals 5 % stenosis with EULALIA 3 flow. Conclusion 1. Successful insertion of drug-eluting stents into the total occlusion in a moderate-sized ramus vessel. 2. There is a patent COULTER graft to the LAD. 3. The RCA has multiple overlapping stents with moderate restenosis. 4. The PDA is a small to moderate-sized caliber vessel with a severe stenosis at the ostium, recommend medical therapy. 5. There is an occluded vein graft. [facility] [address] [place] [address] INVASIVE PROCEDURE REPORT Name: Room #: 150-8 ADM IN M.R.#: [id number] Admission: 09/10/19 Attend Phys: Ian Davis Discharge: Date of : 48 Report #: [id number] 6. Severe LV dysfunction. 7. Recommend dual antiplatelet therapy and aggressive risk factor management. <ELECTRONICALLY SIGNED> By: Pedro Sánchez MD 09/10/19 1614 1614 1614 Pedro Sánchez MD /INF
--- NOTE | 2019-09-10 19:12 | NUR ---
Received pt from the clinical laboratory aide post, alert and oriented x 4 though was initially forgetful when Dr. Meier informed her the chain of events that led her to come to the unit. VS monitored post cardiac cat, 3 stents placed dressing clean, dry and intact. Hemostasis is at 9:30pm, immobilization precuations in place, pt is aware. Blood sugar check done, insulin givne as per emar. POC followed, with no signs or distress. per hx pt is allergic to latex, when asked pt denied this. endorsed to the night nurse.
[2019-09-11 00:29] VITALS: BP 105/51
[2019-09-11 00:30] VITALS: BP 105/51
[2019-09-11 04:30] VITALS: BP 140/65
[2019-09-11 04:59] VITALS: BP 140/65
[2019-09-11 05:33] LABS: HEMOGLOBIN 12.3 gm/dL (12.0-15.0); MCH 29.9 pg (26.0-34.0); MCHC 32.3 g/dL (28.0-37.0); MCV 92.7 fL (80.0-100.0); RBC 4.1 mil/uL (4.20-5.00); RDW 17.4 % (10.5-14.5)
[2019-09-11 06:07] LABS: ALBUMIN 3.3 g/dL (3.4-5.0); CALCIUM 9.1 mg/dL (8.5-10.1); TOTAL BILIRUBIN 0.5 mg/dL (0.2-1.0); TOTAL PROTEIN 6.7 g/dL (6.4-8.2)
[2019-09-11 06:13] LABS: CREATININE 3.8 mg/dL (0.6-1.0); POTASSIUM 4.7 mmol/L (3.5-5.1)
[2019-09-11 06:14] LABS: TROPONIN-I 30.36 ng/mL (<0.06)
--- NOTE | 2019-09-11 07:39 | NUR ---
SLEPT PART OF SHIFT. MOVES AROUND IN BED AND PIVOTS TO BEDSIDE COMODE WITH 1 ASSIST. RIGHT GROIN DRESSING REMAINS D/I, NO BLEEDING OR HEMATOMA. BECOMES VERY ANXIOUS AT TIMES AND NEEDS A LOT OF REASSURANCE. GEL PAD FOR WHEELCHAIR DID NOT COME WITH PATIENT FROM DIALYSIS. REASSURED DAY RN WILL CALL WHEN DIALYSIS CLINIC IS OPEN. WORKING ON GOALS AND PLAN OF CARE FOR NOC. PROGRESSING SLOWLY TOWARDS DISCHARGE GOALS. CONTINUE TO ASSES.
--- NOTE | 2019-09-11 07:50 | EKG ---
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: : 1950 Requested By: Raghav Salazar Order Number: [id number] MD: Arben Velasco Measurements Intervals [place] Rate: 136 P: [place]: QRS: -5 QRSD: 140 T: 36 QT: 341 QTc: 513 Interpretive Statements Atrial fibrillation Probable left ventricular hypertrophy Lateral infarct, acute Prolonged QT interval Compared to ECG 08/12/2019 18:57:52 Myocardial infarct finding now present Prolonged QT interval now present Atrial fibrillation has replaced sinus rhythm Electronically Signed On 09-11-2019 7:49:43 CDT by Arben Velasco [email or web address] <ELECTRONICALLY SIGNED> By: Arben Velasco MD, FAC 09/11/19 0749 1024 1024 Arben Velasco MD, [facility] /EPI
--- NOTE | 2019-09-11 07:53 | EKG ---
[facility] [place] [address] ELECTROCARDIOGRAM REPORT Name: Room #: 219-P ADM IN M.R.#: [id number] Admission: 09/10/19 Attend Phys: Francisca Arteaga MD Discharge: Date of : 46 Report #: [id number] THIS REPORT FOR: cc: Lucas Morris MD, Srinath MD Lundgren,Arben Greenberg MD [facility] ~ THIS REPORT FOR: //name// [facility] Test Date: 2019-09-10 Test Time: 13:23:28 Pat Name: September Department: Room: 219 Gender: F Radio Commentator: Ian GRADY : 1950 Requested By: Pedro Sánchez Order Number: [id number] MD: Arben Velasco Measurements Intervals [place] Rate: 65 P: 46 [place]: 162 QRS: 190 QRSD: 123 T: -58 QT: 483 QTc: 503 Interpretive Statements Sinus rhythm Consider left ventricular hypertrophy High lateral myocardial infarction, recent Prolonged QT interval ST depression V1-V3, suggest recording posterior leads Baseline wander in lead(s) V4 Compared to ECG 08/12/2019 18:57:52 Sinus rhythm has replaced atrial fibrillation High lateral ST segment elevation is less prominent Electronically Signed On 09-11-2019 7:52:19 CDT by Arben Velasco [email or web address] <ELECTRONICALLY SIGNED> By: Arben Velasco MD, [facility] 09/11/19 0752 1323 1323 Arben Velasco MD, [facility] /EPI
--- NOTE | 2019-09-11 10:05 | NUR ---
took pt up to dialysis at 0800
--- NOTE | 2019-09-11 13:47 | NUR ---
CALLED [facility], THEY HAVE PT GEL PAD AND IT IS LABELED WITH HER NAME AND WAITING FOR HER WHEN SHE RETURNS.
--- NOTE | 2019-09-11 16:04 | NUR ---
patient admits from [facility]. Sp with dtr, patient, Dr Carreon and [facility] admissions. Patient was dializing at outpatient [facility]. Dr Careron accepted patient to [facility]. Sp with Denny at [facility] who reports patient is accepted her next apt chair time is Monday at 10:30. Faxed Denny and Tracee clinical updated as well as dialysis order rec here at [facility]. Sp with dtr and [facility] and cont plan [facility].
--- NOTE | 2019-09-11 16:10 | EKG ---
[facility] [place] [address] ELECTROCARDIOGRAM REPORT Name: Room #: 219-P ADM IN M.R.#: [id number] Admission: 09/10/19 Attend Phys: Francisca Arteaga MD Discharge: Date of : 46 Report #: [id number] THIS REPORT FOR: cc: Lucas Morris MD, Srinath MD Lundgren,Arben Greenberg MD [facility] ~ THIS REPORT FOR: //name// [facility] Test Date: 2019-09-11 Test Time: 12:31:26 Pat Name: September Department: Room: 219 P Gender: F Armhole Sewer: Ian GRADY : 1950 Requested By: Pedro Sánchez Order Number: [id number] MD: Arben Velasco Measurements Intervals [place] Rate: 64 P: 60 MI: 158 QRS: 127 QRSD: 130 T: -14 QT: 484 QTc: 500 Interpretive Statements Sinus rhythm LVH Lateral infarct, recent Borderline prolonged QT interval Compared to ECG 09/10/2019 13:23:28 No significant change was found Electronically Signed On 09-11-2019 16:09:22 CDT by Arben Velasco [email or web address] <ELECTRONICALLY SIGNED> By: Arben Velasco MD, [facility] 09/11/19 1609 1231 1231 Arben Velasco MD, [facility] /EPI
[2019-09-11 17:00] VITALS: BP 107/47
[2019-09-11 20:00] VITALS: BP 141/24
[2019-09-12] VITALS: BP 153/69
--- NOTE | 2019-09-12 04:04 | NUR ---
PT AOX4 . NO CHEST PAIN, NAUSEA OR VOMITING REPORTED. VITALS STABLE. SR ON THE CHULA MONITOR. PT VOIDS BY BEDSIDE COMMODE. PT'S WHEELCHAIR BROUGHT FROM THE DIALYSIS CENTER. NO OTHER CONCERNS. WILL CONTINUE WITH POC
[2019-09-12 04:30] VITALS: BP 104/45
[2019-09-12 07:01] VITALS: BP 109/54
[2019-09-12] MEDS ORDERED: LIPITOR40 MG PO (07:30)
[2019-09-12] MEDS ORDERED: ASPIR 8181 MG PO (07:30)
[2019-09-12 08:30] VITALS: BP 109/54
--- NOTE | 2019-09-12 09:05 | HC ---
[facility] [address] [place] [address] CONSULTATION Name: Room #: 219-P ADM IN M.R.#: [id number] Admission: 09/10/19 Attend Phys: Francisca Arteaga MD Discharge: Date of : 46 Report #: [id number] THIS REPORT FOR: cc: Lucas Morris MD,Pedro Gillis MD, MD ~ CC: Francisca Morris DATE OF SERVICE: 09/10/2019 INDICATION: Chest pain. HISTORY OF PRESENT ILLNESS: This is a 69-year-old female with a history of CAD, CABG x 2, end-stage renal disease, on hemodialysis 3 days a week, COPD, hypertension, diabetes mellitus, GI bleed, GERD and right BKA, presenting with chest pain. She is a resident at [facility]. She was undergoing dialysis when she developed substernal chest pain and shortness of breath. She was brought emergently to the ER. ECG reveals new onset atrial fibrillation with ST elevation in leads I and aVL and ST segment depressions in the precordial leads. She denies any fever, chills or orthopnea. PAST MEDICAL HISTORY: CAD, CABG, multiple PCI procedures, end-stage renal disease, on dialysis; COPD, hypertension, hypercholesterolemia. ALLERGIES: LATEX AND CONTRAST. MEDICATIONS: Please see the MAR for full listing. SOCIAL HISTORY: Quit smoking more than a year ago. FAMILY HISTORY: Negative for premature CAD. REVIEW OF SYSTEMS: A full 10-point review of systems performed. Only the pertinent positives and negatives are described in the HPI. PHYSICAL EXAMINATION: VITAL SIGNS: Blood pressure is 95/60, heart rate is 140 beats per minute. GENERAL APPEARANCE: This is an elderly appearing female, in distress. HEENT: Normocephalic, atraumatic. Oral mucosa moist. NECK: Supple. LUNGS: Clear to auscultation. CARDIAC: Tachycardic. S1, S2 positive. ABDOMEN: Soft, nontender. EXTREMITIES: Left lower extremity edema. [facility] [address] [place] [address] CONSULTATION Name: [facility] Room #: 219-P ADM IN M.R.#: [id number] Admission: 09/10/19 Attend Phys: Francisca Arteaga MD Discharge: Date of : 46 Report #: [id number] ECG reveals atrial fibrillation with a rapid rate, ST segment elevation in leads I and aVL with ST segment depression in the precordial leads. LABORATORY VALUES: Troponin is 10.99. ASSESSMENT AND PLAN: 1. Acute high lateral wall myocardial infarction, given her history and onset of chest pain. The plan is to proceed with emergent cardiac catheterization. Started on aspirin and Plavix. 2. Atrial fibrillation, new onset, probably related to acute myocardial infarction. The patient was given Lopressor with minimal effect. Her blood pressure is on the low side, we will start amiodarone. 3. End-stage renal disease as per Nephrology. 4. Hypertension, hold medications with the low blood pressure. 5. Hypercholesterolemia, continue with statin therapy. 6. Diabetes mellitus, check fingersticks and use sliding scale. <ELECTRONICALLY SIGNED> By: Pedro Sánchez MD 09/12/19 0905 1345 1418 Pedro Sánchez MD /nt
[2019-09-12 10:39] LABS: CALCIUM 9.6 mg/dL (8.5-10.1); CREATININE 3.6 mg/dL (0.6-1.0); POTASSIUM 4.9 mmol/L (3.5-5.1)
[2019-09-12 12:00] VITALS: BP 118/55
--- NOTE | 2019-09-12 14:12 | NUR ---
PT DISCHARGING TODAY TO [facility] SPOKE WITH HARSH IN ADM SHE RECEIVED ORDERS AND ARRANGED TRANSPORT BY [facility] FOR 1500 TODAY NOTIFIED PT'S DTR (QUITA) OF DC AND TIME OF TRANSPORT. UNIT NOTIFIED AND CHART COPY PER US. RN TO CALL REPORT TO [phone].
--- NOTE | 2019-09-12 15:25 | NUR ---
PT CARE ASSUMED AT 0700. ASSESSMENTS CHARTED. MEDICATIONS CHARTED. PT DISCHARGED TO [facility]. IV D/C'D. TELEMETRY D/C'D. VSS. PT DENIES PAIN.
--- NOTE | 2019-09-27 15:17 | HC ---
[facility] [place] [address] CONSULTATION Name: Room #: 219-P [facility] IN M.R.#: [id number] Admission: 09/10/19 Attend Phys: Francisca Arteaga MD Discharge: 09/12/19 Date of : 46 Report #: [id number] THIS REPORT FOR: cc: Lucas Morris MD, Srinath MD Al-Absi,Sophia Rose MD ~ CC: Francisca Morris REASON FOR THE CONSULTATION: End-stage renal disease. REASON FOR THE PRESENTATION: Chest pain. HISTORY OF PRESENT ILLNESS: A 69-year-old who is in end-stage renal disease due to longstanding diabetes mellitus and hypertension, she is maintained on hemodialysis. She was in her dialysis unit and 40 minutes in her dialysis unit, she started to have chest pain and presented to the emergency room for further evaluation and management. Troponin was significantly elevated at 10.[address] elevation. She was taken to the clinical laboratory aides [facility] emergently where she had a stent of the ramus artery. She is known to have previous history of coronary artery disease, status post CABG. She has severe cardiomyopathy with an ejection fraction of around 25%. I was consulted to manage the patient's end-stage renal disease issues. PAST MEDICAL HISTORY: Extensive and includes the followin. End-stage renal disease, maintained on hemodialysis every Monday, and Monday. 2. Cardiomyopathy. 3. Coronary artery disease, post CABG. 4. Recurrent pulmonary edema. 5. Tonsillectomy. 6. Ex lap. 7. Cataract surgery. 8. Cholecystectomy. 9. Peripheral vascular disease, post amputation. 10. Diabetes mellitus. MEDICATIONS: 1. Lipitor. 2. Plavix. 3. Omeprazole. 4. Carvedilol. 5. Sevelamer. 6. Hydralazine. 7. Insulin. ALLERGIES: Dye. [facility] [address] [place] [address] CONSULTATION Name: Room #: 219-P [facility] IN [facility].#: [id number] Admission: 09/10/19 Attend Phys: Francisca Arteaga MD Discharge: 09/12/19 Date of : 46 Report #: [id number] SOCIAL HISTORY: She is an ex-smoker. She resides at the [facility]. REVIEW OF SYSTEMS: GENERAL: No fever or chills. CARDIOVASCULAR: Significant chest pain. This had resolved. PULMONARY: She is oxygen dependent with baseline shortness of breath. GASTROINTESTINAL: No nausea or vomiting. GENITOURINARY: She makes little urine. SKIN: No rash or ulcerations. NEUROLOGICAL: No headache, no dizziness. FAMILY HISTORY: Strong family history of diabetes mellitus and hypertension and coronary artery disease. PHYSICAL EXAMINATION: VITAL SIGNS: Temperature 36.7, blood pressure 140/65, pulse rate is 63. HEAD AND NECK: No jugular venous distention, no bruit, no thyromegaly. CHEST: Crackles present bilaterally. CARDIOVASCULAR: No rub detected. ABDOMEN: Soft, nontender. LOWER EXTREMITIES: Mild edema on the left lower extremity. Post-amputation on the right side. LABORATORY VALUES: Hemoglobin is 12.3. Sodium is 129, BUN is 57, creatinine is 3.8. Troponin is up to 30.36. ASSESSMENT, IMPRESSION, AND PLAN: 1. End-stage renal disease. 2. STEMI post-stent placement. 3. Pulmonary edema. 4. Peripheral vascular disease. 5. Diabetes mellitus. 6. Hypertension. 7. Arrangement for the patient to have her usual hemodialysis today. 8. Management of her STEMI, post-STEMI care as per the Cardiology service. <ELECTRONICALLY SIGNED> By: Sophia Rock MD 09/27/19 1517 0912 1111 Sophia Rock MD /nt
== END 2019-09-12 15:42 | DRG 246 ==
LOC: ER 10:17 → 2N 10:45 → TBA 11:07 → 2N 11:07
PROVIDERS: Emergency Medicine; Internal Medicine Cardiovascular Disease; Nurse Practitioner; ADMIT Hospitalist; ATTEND Hospitalist
DX: I21.29 ST elevation (STEMI) myocardial infarction involving other sites (principal); J96.20 Acute and chronic respiratory failure, unspecified whether with hypoxia or hypercapnia; N18.6 End stage renal disease; I42.9 Cardiomyopathy, unspecified; I13.2 Hypertensive heart and chronic kidney disease with heart failure and with stage 5 chronic kidney disease, or end stage renal disease; I50.30 Unspecified diastolic (congestive) heart failure; I25.10 Atherosclerotic heart disease of native coronary artery without angina pectoris; J45.909 Unspecified asthma, uncomplicated; G25.81 Restless legs syndrome; E78.00 Pure hypercholesterolemia, unspecified; E11.51 Type 2 diabetes mellitus with diabetic peripheral angiopathy without gangrene; I35.0 Nonrheumatic aortic (valve) stenosis; G47.00 Insomnia, unspecified; M81.0 Age-related osteoporosis without current pathological fracture; F41.9 Anxiety disorder, unspecified; I48.91 Unspecified atrial fibrillation; I27.20 Pulmonary hypertension, unspecified; D63.8 Anemia in other chronic diseases classified elsewhere; E78.5 Hyperlipidemia, unspecified; Z79.82 Long term (current) use of aspirin; Z79.899 Other long term (current) drug therapy; Z99.2 Dependence on renal dialysis; Z95.5 Presence of coronary angioplasty implant and graft; Z95.1 Presence of aortocoronary bypass graft; Z98.41 Cataract extraction status, right eye; Z90.49 Acquired absence of other specified parts of digestive tract; Z87.891 Personal history of nicotine dependence; Z91.041 Radiographic dye allergy status; Z91.040 Latex allergy status; Z83.3 Family history of diabetes mellitus; Z82.49 Family history of ischemic heart disease and other diseases of the circulatory system
CPT/HCPCS: 10081; 10797; 32100

== ENCOUNTER 2019-11-06 15:48 | Emergency (ER) | payer OTHER ==
[~2019-11-06 15:48] MED LIST changes: +ASPIR 8181 MG PO; +LIPITOR40 MG PO
== END 2019-11-06 16:00 ==
LOC: ER 15:48
DX: I46.9 Cardiac arrest, cause unspecified (principal); Z99.2 Dependence on renal dialysis; I48.91 Unspecified atrial fibrillation; I25.2 Old myocardial infarction; I25.10 Atherosclerotic heart disease of native coronary artery without angina pectoris; J45.909 Unspecified asthma, uncomplicated; E11.22 Type 2 diabetes mellitus with diabetic chronic kidney disease; I13.2 Hypertensive heart and chronic kidney disease with heart failure and with stage 5 chronic kidney disease, or end stage renal disease; I50.9 Heart failure, unspecified; N18.6 End stage renal disease; Z98.51 Tubal ligation status; Z98.61 Coronary angioplasty status; Z90.89 Acquired absence of other organs; Z79.82 Long term (current) use of aspirin; Z79.899 Other long term (current) drug therapy; Z91.040 Latex allergy status; Z91.041 Radiographic dye allergy status; Z87.891 Personal history of nicotine dependence